=== PATIENT | male | born 2000 | race Caucasian/White ===

== ENCOUNTER 2021-08-29 18:01 | Emergency (ER) | payer SELFPAY ==
[2021-08-29 18:03] VITALS: BP 150/70; PULSE 118; RESP 20; TEMP 36.4; O2SAT 99; BMI 22.9
[2021-08-29 18:12] VITALS: BP 120/73; PULSE 79; RESP 18; TEMP 36.9; O2SAT 97
--- NOTE | 2021-08-29 18:34 | ED_ITS ---
HPI - Neuro Symptoms/Deficit General: Chief Complaint: Neuro Symptoms/Deficit Stated Complaint: bilateral hand drawing up Time Seen by Provider: 08/29/21 18:25 Source: patient and family (Spouse and mother) Mode of arrival: ambulatory Limitations: no limitations History of Present Illness: This patient presents to the emergency department here this evening because of concerns about feeling shaky and numb and like he could not move his hands earlier today. This occurred while he was with his and they were eating dinner. She states that he seemed to be rather shaky and stated that he had never felt like this before. He acknowledges that he felt like his heart was racing and he could not control his heart rate. He states he had numbness to his cheeks. He states he did not have a headache and had not been exposed to any unusual substances or foods today. Noted that he had normal speech and there was no focal weakness. He states he had a history of palpitations in the past but this felt much worse. He does not smoke tobacco but he does vape. He does not use street drugs nor does he drink alcohol. He takes no prescribed medications and has not taken any iabn-cfd-suvozno medica tions. He uses very little if any caffeinated beverages. He denied fevers or chills nausea vomiting diarrhea. He states he is feeling better at this time. No history of emotional upset etc. prior to the onset of symptoms. There was a question of stopping drinking 3 days ago but he states he does not drink that heavily and some tightness some days he does not drink. Timing confirmed by: spouse Associated symptoms: Deny chest pain, headache(s), nausea, syncope or vomiting Treatments Prior to Arrival: none Review of Systems Const: Denies: fever(s), chills, body aches or change in appetite Eyes: Denies: change in vision or blurry vision ENMT: Denies: throat pain, odynophagia, change in hearing, tinnitus, disequilibrium or nasal congestion Card: Reports: palpitations and lightheadedness; Denies: chest pain, irregular heart rhythm, syncope or pre-syncope Resp: Denies: dyspnea, productive cough or non-productive cough GI: Denies: abdominal pain, nausea or vomiting : Denies: flank pain, difficulty urinating, dysuria or urinary frequency Musc: Denies: neck pain, back pain, extremity pain or extremity swelling Skin/Breast: Denies: rash or pruritus Neuro: Reports: numbness in extremities; Denies: headache(s), weakness in extremities, sensory changes, confusion, Slurred speech present or seizure-like activity Endo: Denies: polyuria or polydipsia Nigel/Lymph: Denies: easy bruising NIH stroke score NIHSS: Level Of Consciousness - 1a: 0 Level Of Consciousness Questions - 1b: Both Correct Level Of Consciousness Commands - 1c: Both Correct Best Gaze - 2: Normal Visual Larios - 3: No Visual Loss Facial Palsy - 4: Normal Motor Arm Right - 5: No Drift Motor Arm Left - 5: No Drift Motor Leg Right - 6: No Drift Motor Leg Left - 6: No Drift Limb Ataxia - 7: Absent Sensory - 8: Normal Best Language - 9: No Aphasia Dysarthia - 10: Normal Extinction And Inattention - 11: 0 Score: Total Score: 0 Physical Exam Narrative: EXAM NARRATIVE: Patient makes good eye contact. Has normal tonality to his speech. Speech is not pressured and is goal-directed. Const: COMMON NORMALS: no acute distress, average body habitus and patient oriented x3 GENERAL APPEARANCE: cooperative HENMT: COMMON NORMALS: Normal nasal mucous membranes and turbinates present, moist oral mucous membranes and oropharynx normal NOSE: Normal nasal mucous membranes and turbinates present Neuro: COMMON NORMALS: patient oriented x3 Course Reevaluation(s): Reevaluation #1: Patient remained stable. He has received his potassium replacement. No a rrhythmias noted during monitoring. No other worrisome findings other than hypokalemia which was mild as well as his urine drug screen which showed THC as well as cocaine. This was reviewed and discussed with the patient. Denied any overt knowledge of using cocaine but does admit to the marijuana. Certainly no evidence at this time to suggest a central nervous system issue at play. His findings are consistent with possible effects of cocaine as well as perhaps concomitant hyperventilation. Stable for discharge. Time: 21:11 Vital Signs: Vital signs: Vital Signs Temperature 98.4 F 08/29/21 18:12 Pulse Rate 79 08/29/21 18:12 Respiratory Rate 18 08/29/21 18:12 Blood Pressure 120/73 08/29/21 18:12 Pulse Oximetry 97 08/29/21 18:12 MDM - Neuro Symptoms/Deficit Medical Decision Making Patient with a nonfocal clinical examination with a history suggestive of possible hyperventilation or other stimulant effect. He has remained stable throughout his emergency department evaluation with no worrisome or concerning findings. He did have incidental finding of hypokalemia as well as positive cocaine and THC on his urine drug screen. Again no findings at all to suggest an ongoing emergency medical condition. Discussed findings with the patient. He is stable for discharge. Medical Records I reviewed the patient's medical records. Lab Data I reviewed the patient's lab results. : 08/29/21 18:37 08/29/21 18:[address] 08/29/21 18:41 IMPRESSION: 1. No CT evidence of acute intracranial pathology. 2. Additional findings, as above. Laboratory Results WBC 8.5 10^3/uL (4.0-10.0) 08/29/21 18:37 RBC 5.11 10^6/uL (4.1-5.3) 08/29/21 18:37 Hgb 15.8 g/dL (11.7-16.6) 08/29/21 18:37 Hct 44.5 % (42.0-52.0) 08/29/21 18:37 MCV 87.1 fl (80-94) 08/29/21 18:37 MCH 30.9 pg (28.0-34.0) 08/29/21 18:37 MCHC 35.5 g/dL (30.0-36.0) 08/29/21 18:37 RDW 11.9 % (12.1-15.1) L 08/29/21 18:37 Plt Count 257 10^3/cmm (130-400) 08/29/21 18:37 MPV 10.7 fL (7.4-10.4) H 08/29/21 18:37 Neut % (Auto) 70.2 % 08/29/21 18:37 Lymph % (Auto) 19.9 % 08/29/21 18:37 [place] % (Auto) 8.1 % 08/29/21 18:37 Eos % (Auto) 0.9 % 08/29/21 18:37 Baso % (Auto) 0.7 % 08/29/21 18:37 Neut # (Auto) 5.97 10^3/uL (1.8-7.7) 08/29/21 18:37 Lymph # (Auto) 1.7 10^3/uL (0.8-4.8) 08/29/21 18:37 [place] # (Auto) 0.7 10^3/uL (0.2-0.9) 08/29/21 18:37 Eos # (Auto) 0.1 10^3/uL (0.0-0.8) 08/29/21 18:37 Baso # (Auto) 0.1 10^3/uL (0.0-0.1) 08/29/21 18:37 Nucleated RBC % (auto) 0 % 08/29/21 18:37 Nucleated RBCs # 0.0 /100WBC 08/29/21 18:37 Sodium 137 mmol/L (136-145) 08/29/21 18:37 Potassium 3.2 mmol/L (3.5-5.1) L 08/29/21 18:37 Chloride 101 mmol/L (98-107) 08/29/21 18:37 Carbon Dioxide 21 mmol/L (22-29) L 08/29/21 18:37 Anion Gap 18.2 (5-19) 08/29/21 18:37 BUN 11 mg/dL (6-20) 08/29/21 18:37 Creatinine 0.7 mg/dL (0.7-1.2) 08/29/21 18:37 GFR Calculation 141.0 mL/min (90-130) H 08/29/21 18:37 Glucose 150 mg/dL (65-115) H 08/29/21 18:37 Calculated Osmolality 286 mOsm/kg (285-295) 08/29/21 18:37 Calcium 10.0 mg/dL (8.5-10.5) 08/29/21 18:37 Magnesium 1.7 mg/dL (1.7-2.3) 08/29/21 18:37 Total Bilirubin 1.0 mg/dL (0.15-1.2) 08/29/21 18:37 AST 22 U/L (0-40) 08/29/21 18:37 ALT 21 U/L (0-41) 08/29/21 18:37 Alkaline Phosphatase 84 IU/L (40-130) 08/29/21 18:37 Total Protein 7.5 g/dL (6.6-8.7) 08/29/21 18:37 Albumin 5.1 g/dL (3.5-5.2) 08/29/21 18:37 Globulin 2.4 g/dL (1.3-4.6) 08/29/21 18:37 Urine Opiates Screen Negative ng/mL (Negative) 08/29/21 20:06 Ur Barbiturates Screen Negative ng/mL (Negative) 08/29/21 20:06 Ur Phencyclidine Scrn Negative ng/mL (Negative) 08/29/21 20:06 Ur Amphetamines Screen Negative ng/mL (Negative) 08/29/21 20:06 U Benzodiazepines Scrn Negative ng/mL (Negative) 08/29/21 20:06 Urine Cocaine Screen Positive ng/mL (Negative) H 08/29/21 20:06 U Marijuana (THC) Screen Positive ng/mL (Negative) H 08/29/21 20:06 Ethyl Alcohol < 10 mg/dL (0-10) 08/29/21 18:37 Discharge Plan Discharge Patient Disposition: Home Clinical Impression: Hypokalemia, Cocaine abuse with intoxication with perceptual disturbance Condition: Stable Discharge Orders: Discharge ED (Routine); Ordered 08/29/21 Ordered By: Matt Pisano Discharge Diet: Usual diet Discharge Activity: Resume usual activity Patient Instructions: Opioid Safety Activity Restrictions/Additional Instructions: Avoid street drugs. Avoid any other stimulants such as excess caffeine, energy drinks etc. Eat a regular diet to include fruits and vegetables to maintain a normal potassium level. Follow-up with your primary care physician or return to the emergency department anytime if you have any persistent worsening or new symptoms or other concerns. Coding Level of Care Code ED Crown Assembly Machine Set Up Mechanic for Unique Fwd Exam Expanded Problem Focused
--- NOTE | 2021-08-29 18:41 | ECG_ITS ---
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 Measurements Intervals [place] Rate: 116 P: 76 [place]: 153 QRS: 102 QRSD: 96 T: 74 QT: 385 QTc: 536 Interpretive Statements SINUS TACHYCARDIA POSSIBLE RIGHT ATRIAL ENLARGEMENT [0.25mV P-WAVE] LEFT ATRIAL ENLARGEMENT [-0.15mV P-WAVE IN V1/V2] RIGHT AXIS DEVIATION [QRS AXIS > 100] INCOMPLETE RIGHT BUNDLE BRANCH BLOCK [90+ ms QRS DURATION, TERMINAL R IN V1/V2, 40+ ms S IN I/aVL/V4/V5/V6] Compared to ECG 03/26/2019 13:11:13 Right-axis deviation now present Sinus rhythm no longer present T-wave abnormality no longer present Electronically Signed On 08-30-2021 20:27:48 CDT by Jim Paez M.D. [id number]
--- NOTE | 2021-08-29 18:41 | CTR_ITS ---
PROCEDURE INFORMATION: Exam: CT Head Without Contrast Exam date and time: 08/29/2021 7:26 PM Age: 20 years old Clinical indication: Numbness / parasthesia; Bilateral; Patient HX: C/O b hand numbness/weakness; Additional info: Numbness and weakness TECHNIQUE: Imaging protocol: Computed tomography of the head without contrast. Axial, coronal and sagittal reformatted images were created and reviewed. Radiation optimization: All CT scans at this facility use at least one of these dose optimization techniques: automated exposure control; mA and/or kV adjustment per patient size (includes targeted exams where dose is matched to clinical indication); or iterative reconstruction. COMPARISON: No relevant prior studies available. RADIATION DOSE METRICS: Total DLP (mGy-cm): 935.48 FINDINGS: Brain: No CT evidence of acute intracranial hemorrhage or acute territorial infarction. No significant mass effect or midline shift. Basal cisterns patent. Cerebral ventricles: Normal in size and configuration. Paranasal sinuses: Mild ethmoid mucosal thickening. Mastoid air cells: Grossly unremarkable. Bones/joints: No acute osseous abnormality. Soft tissues: Grossly unremarkable. CT/CT head wo con* [id number] IMPRESSION: 1. No CT evidence of acute intracranial pathology. 2. Additional findings, as above.
[2021-08-29 18:52] LABS: Basophils # 0.1 10^3/uL (0.0-0.1); Basophils % 0.7 %; Eosinophils # 0.1 10^3/uL (0.0-0.8); Eosinophils % 0.9 %; Hematocrit 44.5 % (42.0-52.0); Hemoglobin 15.8 g/dL (11.7-16.6); Lymphocytes # 1.7 10^3/uL (0.8-4.8); Lymphocytes % 19.9 %; Mean Corpuscular HGB Conc 35.5 g/dL (30.0-36.0); Mean Corpuscular Hemoglobin 30.9 pg (28.0-34.0); Mean Corpuscular Volume 87.1 fl (80-94); Mean Platelet Volume 10.7 fL (7.4-10.4); Monocytes # 0.7 10^3/uL (0.2-0.9); Monocytes % 8.1 %; Neutrophils # 5.97 10^3/uL (1.8-7.7); Neutrophils % 70.2 %; Nucleated Red Blood Cells % 0 %; Platelet Count 257 10^3/cmm (130-400); Red Blood Count 5.11 10^6/uL (4.1-5.3); Red Cell Distribution Width 11.9 % (12.1-15.1); White Blood Count 8.5 10^3/uL (4.0-10.0)
[2021-08-29 19:11] LABS: Alanine Aminotransferase 21 U/L (0-41); Albumin Level 5.1 g/dL (3.5-5.2); Alkaline Phosphatase 84 IU/L (40-130); Anion Gap 18.2 (5-19); Aspartate Amino Transferase 22 U/L (0-40); Blood Urea Nitrogen 11 mg/dL (6-20); Carbon Dioxide 21 mmol/L (22-29); Chloride 101 mmol/L (98-107); Globulin 2.4 g/dL (1.3-4.6); Glucose 150 mg/dL (65-115); Magnesium 1.7 mg/dL (1.7-2.3); Osmolality Calculated 286 mOsm/kg (285-295); Potassium 3.2 mmol/L (3.5-5.1); Sodium 137 mmol/L (136-145); Total Protein 7.5 g/dL (6.6-8.7)
[2021-08-29 19:12] LABS: Alcohol Level < 10 mg/dL (0-10)
[2021-08-29] MEDS: potassium chloride ER 20 mEq Tablet 40 MEQ PO (20:18)
[2021-08-29 20:29] LABS: Amphetamines Screen Urine Negative (Negative); Barbiturates Screen Urine Negative (Negative); Benzodiazepines Screen Urine Negative (Negative); Cocaine Screen Urine Positive (Negative); Opiate Screen Urine Negative (Negative); PCP Screen Urine Negative (Negative); THC Screen Urine Positive (Negative)
[2021-08-29 21:21] VITALS: BP 109/71; PULSE 74; RESP 16; O2SAT 98
== END 2021-08-29 21:22 | disposition home or self-care (01) ==
PROVIDERS: Emergency Provider Emergency Medicine
DX: F14.122 Cocaine abuse with intoxication with perceptual disturbance (principal); E87.6 Hypokalemia
CPT/HCPCS: 70450; 80053; 80306; 80307; 83735; 85025; 93005; 99283

== ENCOUNTER → 2022-02-11 14:02 | Outpatient (BNVA) | payer SELFPAY | PROVIDERS: Visit Provider Nurse Practitioner Family | DX: Z20.822 Contact with and (suspected) exposure to COVID-19 (principal); U07.1 COVID-19; R00.0 Tachycardia, unspecified | CPT/HCPCS: 87426 ==

== ENCOUNTER 2023-07-15 20:03 | Emergency (ER) | payer SELFPAY ==
[2023-07-15 20:12] VITALS: BP 124/75; PULSE 106; RESP 18; TEMP 37; O2SAT 96; BMI 26.2
[2023-07-15 21:30] VITALS: PULSE 126; RESP 14; O2SAT 96
--- NOTE | 2023-07-15 21:33 | ECG_ITS ---
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 Measurements Intervals [place] Rate: 101 P: 61 [place]: 128 QRS: 92 QRSD: 96 T: 29 QT: 308 QTc: 400 Interpretive Statements SINUS TACHYCARDIA POSSIBLE LEFT ATRIAL ENLARGEMENT [-0.1mV P-WAVE IN V1/V2] BORDERLINE RIGHT AXIS DEVIATION [QRS AXIS > 90] INCOMPLETE RIGHT BUNDLE BRANCH BLOCK [90+ ms QRS DURATION, TERMINAL R IN V1/V2, 40+ ms S IN I/aVL/V4/V5/V6] ST DEVIATION AND MODERATE T-WAVE ABNORMALITY, CONSIDER LATERAL ISCHEMIA [-0.1+ mV T-WAVE IN I/aVL/V5/V6] Compared to ECG 08/29/2021 18:07:55 T-wave abnormality now present Possible ischemia now present Electronically Signed On 07-15-2023 23:09:34 ASSISTANT PORTFOLIO MANAGER by German Méndez M.D. [email or web address]/[id number] muse
--- NOTE | 2023-07-15 21:33 | XRR_ITS ---
PROCEDURE INFORMATION: Exam: XR Chest Exam date and time: 07/15/2023 9:53 PM Age: 22 years old Clinical indication: Angina pectoris; Patient HX: Chest pain; Bilat arm numbness TECHNIQUE: Imaging protocol: Radiologic exam of the chest. Views: 1 view. COMPARISON: CT chest abdpel w/*[id number] 04/24/2017 10:55 PM FINDINGS: Lungs: Unremarkable. No consolidation. Pleural spaces: Unremarkable. No pleural effusion. No pneumothorax. Heart/Mediastinum: Unremarkable. No cardiomegaly. Bones/joints: Unremarkable. XR/XR chest 1V portable [id number] IMPRESSION: No acute plain radiographic cardiopulmonary abnormality.
[2023-07-15] MEDS: dilTIAZem 5 mg/mL SDV 5 mL IVP (21:44)
[2023-07-15] MEDS: dilTIAZem 5 mg/mL SDV 5 mL 10 MG IVP (21:44)
[2023-07-15 21:45] VITALS: PULSE 126; RESP 16; O2SAT 98
[2023-07-15 21:55] LABS: Basophils # 0.1 10^3/uL (0.0-0.1); Basophils % 0.8 %; Eosinophils % 0.2 %; Hematocrit 43.7 % (37-53); Lymphocytes # 2.2 10^3/uL (0.8-4.8); Lymphocytes % 25.6 %; Mean Corpuscular HGB Conc 36.4 g/dL (30-55); Mean Corpuscular Hemoglobin 30.6 pg (27-33); Monocytes # 0.7 10^3/uL (0.2-0.9); Monocytes % 8.1 %; Neutrophils # 5.58 10^3/uL (1.8-7.7); Neutrophils % 65.1 %; Nucleated Red Blood Cells % 0 %; Platelet Count 267 10^3/cmm (157-399); Red Cell Distribution Width 11.2 % (12.1-15.1); White Blood Count 8.57 10^3/uL (3.29-11.43)
[2023-07-15 22:00] VITALS: BP 139/79; PULSE 141; RESP 17; O2SAT 95
[2023-07-15] MEDS: LORazepam 2 mg/mL INJ 10 mL MDV IVP (22:05)
[2023-07-15 22:09] LABS: INR 1.05 (0.8-1.2)
[2023-07-15 22:10] LABS: Partial Thromboplastin Time 29.4 SECONDS (23.9-36.7)
[2023-07-15 22:12] LABS: D Dimer <= 0.27 ug/mLFEU (0-0.59)
[2023-07-15 22:15] LABS: Troponin(5th) Baseline < 6 ng/L (0-15)
[2023-07-15 22:25] LABS: Alanine Aminotransferase 14 U/L (0-41); Alkaline Phosphatase 79 U/L (40-130); Anion Gap 19.5 (5-19); Aspartate Amino Transferase 19 U/L (0-40); Blood Urea Nitrogen 13 mg/dL (6-20); Calcium 9.9 mg/dL (8.5-10.5); Carbon Dioxide 21 mmol/L (22-29); Chloride 104 mmol/L (98-107); Globulin 2.2 g/dL (1.3-4.6); Glomerular Filtration Rate 138.6 mL/min (90-130); Glucose 108 mg/dL (65-115); NT Pro B Type Natriuretic Pept < 36 pg/mL (0-125); Osmolality Calculated 293 mOsm/kg (285-295); Potassium 3.5 mmol/L (3.5-5.1); Sodium 141 mmol/L (136-145); Thyroid Stimulating Hormone 1.25 uIU/mL (0.27-4.20); Total Bilirubin 0.6 mg/dL (0.15-1.2); Total Protein 7.2 g/dL (6.6-8.7)
[2023-07-15 22:26] LABS: Alcohol Level < 10 mg/dL (0-10)
[2023-07-15 22:34] VITALS: BP 122/72; PULSE 79; PULSE 83; RESP 14; RESP 23; O2SAT 94; O2SAT 96
[2023-07-15] MEDS: potassium chloride ER 20 mEq Tablet 40 MEQ PO (23:12)
--- NOTE | 2023-07-15 23:33 | ECG_ITS ---
[facility] Test Date: 2023-07-15 Pat Name: Reji Mancera Department: Room: Gender: Male Pediatric Critical Care Nurse: : 2000 Requested By: Milton Dowling Order Number: [id number] Jason MD: German Méndez M.D. Measurements Intervals [place] Rate: 128 P: 59 [place]: 190 QRS: 88 QRSD: 105 T: 62 QT: 382 QTc: 559 Interpretive Statements SINUS TACHYCARDIA INCOMPLETE RIGHT BUNDLE BRANCH BLOCK [90+ ms QRS DURATION, TERMINAL R IN V1/V2, 40+ ms S IN I/aVL/V4/V5/V6] ST DEVIATION AND MODERATE T-WAVE ABNORMALITY, CONSIDER ANTERIOR ISCHEMIA [-0.1+ mV T-WAVE IN V3/V4] Compared to ECG 07/15/2023 20:16:07 No significant changes Electronically Signed On 07-15-2023 23:21:49 WIND FARM SUPPORT SPECIALIST by German Méndez M.D. [email or web address]/store/NU/[id number] f
--- NOTE | 2023-07-15 23:42 | PC.NURSE ---
Per instruction of Dr Barber, patient was ambulated down the hallway to determine if his heart rate became elevated. Patient ambulated without incident, and was assisted back into bed. Vitals remained stable; pt had no complaints of chest pain, shortness of breath, dizziness, weakness, or any other concerning symptom. Dr Barber notified of the results of ambulation, no further orders received at this time.
[2023-07-15 23:43] VITALS: BP 109/69; PULSE 80; RESP 15; O2SAT 97
--- NOTE | 2023-07-15 23:52 | ED_ITS ---
HPI - Chest Pain 2 General: Chief Complaint: Chest Pain Stated Complaint: Heart Rate High Time Seen by Provider: 07/15/23 20:46 History of Present Illness: 22-year-old male with a history of tachy cardia. Tachycardia is of undiagnosed origin. He reports the last time his potassium was low. He presents with tachycardia and palpitations. He is having chest pain intermittently. He gets left arm pain sometimes when his heart rate is increased. This has been going on today on and off. He has no primary physician. He never followed up after his last episode which was a year ago he says. No other recent illness. Associated symptoms: Reports dyspnea, nausea and palpitations; Deny abdominal pain, fever(s) or vomiting Review of Systems 2 Const: Denies: fever(s) or chills Eyes: Denies: change in vision ENMT: Denies: throat pain Card: Reports: chest pain and palpitations Resp: Reports: dyspnea; Denies: productive cough or non-productive cough GI: Reports: nausea; Denies: abdominal pain or vomiting Musc: Denies: neck pain Skin/Breast: Denies: rash Neuro: Denies: headache(s) Psych: Reports: anxiety PFSH ED 2 PFSH: Medical History Tachycardia Social History Smoking and tobacco/nicotine status: never used tobacco/nicotine Physical Exam 2 Const: COMMON NORMALS: no acute distress GENERAL APPEARANCE: cooperative; not ill appearing and not frail appearing HENMT: COMMON NORMALS: normocephalic, atraumatic and Normal external nose present HEAD & SCALP: normocephalic and atraumatic FACE & SINUS: normal facial exam and face symmetric NOSE: Normal external nose present Eye: COMMON NORMALS: Equal, round and reactive pupils present and EOMs intact bilaterally PUPIL: Yes Equal, round and reactive pupils present Neck/C-Spine: GENERAL: Yes trachea midline Chest: CHEST: Yes Symmetrical chest wall rise Resp: COMMON NORMALS: normal respiratory effort, No retractions, No use of accessory muscles and clear to auscultation bilaterally AUSCULTATION: clear to auscultation bilaterally Cardio: COMMON NORMALS: regular rhythm RATE: tachycardic RHYTHM: regular rhythm GI: COMMON NORMALS: Normal to inspection, nondistended, normoactive bowel sounds present Extremity: COMMON NORMALS: no pedal edema Neuro: MADDIE COMA SCALE: document GCS findings Hubert coma scale eye opening: Spontaneous Hubert coma scale verbal response: Orientated Hubert coma scale motor response: Obey commands Maddie coma scale total score: 15 S ENSORY EXAM: Yes extremities (intact) Psych: COMMON NORMALS: speech normal SPEECH: Yes normal speech Skin: COMMON NORMALS: no rashes or lesions noted GENERAL SKIN EXAM: no rashes or lesions noted Course 2 Vital Signs: Vital signs: Vital Signs Temperature 98.6 F 07/15/23 20:12 Pulse Rate 84 07/16/23 00:20 Respiratory Rate 15 07/15/23 23:43 Blood Pressure 102/71 07/16/23 00:20 Pulse Oximetry 97 07/16/23 00:20 Oxygen Delivery Me thod Room Air 07/15/23 22:00 MDM - Chest Pain Medical Decision Making Heart rate as high as 150. Sinus tachycardia. CBC is normal. BMP is normal. Chest x-ray is negative. Troponin is less than 6. BNP is less than 36. D- dimer is nondetectable. TSH is 1.25. Patient has been on able to give a urine sample as yet. He was given diltiazem for the heart rate of 1 45-1 50. This seemed to help. He was also given 1 lorazepam as he was quite anxious. This resolved his tachycardia. He hs walked in the ER without tachycardia or symptoms. He will be discharged. He will require outpatient follow-up with cardiology given his tachycardia. Case management has been notified. In the meantime, he'll be treated with metoprolol to hopefully mitigate the HR problem. Lab Data 07/15/23 21:48 07/15/23 21:48 Radiology Impressions Chest X-Ray 07/15/23 21:33 IMPRESSION: No acute plain radiographic cardiopulmonary abnormality. Laboratory Results WBC 8.57 10^3/uL (3.29-11.43) 07/15/23 21:48 RBC 5.20 10^6/uL (3.85-5.65) 07/15/23 21:48 Hgb 15.90 g/dL (11.27-16.99) 07/15/23 21:48 Hct 43.7 % (37-53) 07/15/23 21:48 MCV 84.0 fl (82-101) 07/15/23 21:48 MCH 30.6 pg (27-33) 07/15/23 21:48 MCHC 36.4 g/dL (30-55) 07/15/23 21:48 RDW 11.2 % (12.1-15.1) L 07/15/23 21:48 Plt Count 267 10^3/cmm (157-399) 07/15/23 21:48 MPV 11.0 fL (7.4-10.4) H 07/15/23 21:48 Neut % (Auto) 65.1 % 07/15/23 21:48 Lymph % (Auto) 25.6 % 07/15/23 21:48 [place] % (Auto) 8.1 % 07/15/23 21:48 Eos % (Auto) 0.2 % 07/15/23 21:48 Baso % (Auto) 0.8 % 07/15/23 21:48 Neut # (Auto) 5.58 10^3/uL (1.8-7.7) 07/15/23 21:48 Lymph # (Auto) 2.2 10^3/uL (0.8-4.8) 07/15/23 21:48 [place] # (Auto) 0.7 10^3/uL (0.2-0.9) 07/15/23 21:48 Eos # (Auto) 0.0 10^3/uL (0.0-0.8) 07/15/23 21:48 Baso # (Auto) 0.1 10^3/uL (0.0-0.1) 07/15/23 21:48 Nucleated RBC % (auto) 0 % 07/15/23 21:48 Nucleated RBCs # 0.0 /100WBC 07/15/23 21:48 PT 14.10 SECONDS (12.1-14.9) 07/15/23 21:48 INR 1.05 (0.8-1.2) 07/15/23 21:48 APTT 29.4 SECONDS (23.9-36.7) 07/15/23 21:48 D-Dimer <= 0.27 ug/mLFEU (0-0.59) 07/15/23 21:48 Sodium 141 mmol/L (136-145) 07/15/23 21:48 Potassium 3.5 mmol/L (3.5-5.1) 07/15/23 21:48 Chloride 104 mmol/L (98-107) 07/15/23 21:48 Carbon Dioxide 21 mmol/L (22-29) L 07/15/23 21:48 Anion Gap 19.5 (5-19) H 07/15/23 21:48 BUN 13 mg/dL (6-20) 07/15/23 21:48 Creatinine 0.7 mg/dL (0.7-1.2) 07/15/23 21:48 GFR Calculation 138.6 mL/min (90-130) H 07/15/23 21:48 Glucose 108 mg/dL (65-115) 07/15/23 21:48 Calculated Osmolality 293 mOsm/kg (285-295) 07/15/23 21:48 Calcium 9.9 mg/dL (8.5-10.5) 07/15/23 21:48 Total Bilirubin 0.6 mg/dL (0.15-1.2) 07/15/23 21:48 AST 19 U/L (0-40) 07/15/23 21:48 ALT 14 U/L (0-41) 07/15/23 21:48 Alkaline Phosphatase 79 U/L (40-130) 07/15/23 21:48 Troponin T Baseline < 6 ng/L (0-15) 07/15/23 21:48 Troponin T 120 Minute 6.00 ng/L (0-15) 07/15/23 23:48 Delta Troponin T 0.27062 ABS# (0-10) 07/15/23 23:48 NT-Pro-B Natriuret Pep < 36 pg/mL (0-125) 07/15/23 21:48 Total Protein 7.2 g/dL (6.6-8.7) 07/15/23 21:48 Albumin 5.0 g/dL (3.5-5.2) 07/15/23 21:48 Globulin 2.2 g/dL (1.3-4.6) 07/15/23 21:48 TSH 1.25 uIU/mL (0.27-4.20) 07/15/23 21:48 Ethyl Alcohol < 10 mg/dL (0-10) 07/15/23 21:48 All radiology interpretation(s) finalized by discharge Discharge Plan Discharge Patient Disposition: Home Clinical Impression: Tachycardia Condition: Stable Prescriptions: New metoprolol tartrate 25 mg tablet 12.5 mg PO BID Qty: 60 0RF Discharge Orders: Discharge ED (Routine); Ordered 07/16/23 Ordered By: Milton Barber Referrals: Jim Paez MD [Physician] - Patient Instructions: Tachycardia (ED), Opioid Safety, Pain Management Activity Restrictions/Additional Instructions: You presented this evening with a fast heart rate. It is resolved at this point. Medication you are prescribed should prevent tachycardia to some degree. Case management has been asked to make you an appointment with the heart clinic. You should a call from them next week regarding evaluation. You are encouraged to follow-up. Return for repeated episodes of fast heart rate or palpitations, chest discomfort, other concerning symptoms despite treatment in the meantime. Coding Level of Care Code ED Wire Winding Machine Tender for Unique Lopez
[2023-07-16 00:16] LABS: Troponin 5 2HR Delta 0.00001 ABS# (0-10)
[2023-07-16 00:20] VITALS: BP 102/71; PULSE 84; O2SAT 97
[2023-07-16] MEDS: metoprolol tartrate 25 mg Tablet PO (00:43)
--- NOTE | 2023-07-17 08:20 | DCPLANNER ---
Message was sent to cardiology on 07/17/23 at 0821. Clinic to contact patient.
== END 2023-07-16 00:23 | disposition home or self-care (01) ==
PROVIDERS: Emergency Provider Emergency Medicine
DX: R00.0 Tachycardia, unspecified (principal)
CPT/HCPCS: 36415; 71045; 80053; 80307; 83880; 84443; 84484; 85025; 85378; 85610; 85730; 93005; 96374; 96375; 99285; J2060; J3490

== ENCOUNTER 2023-07-17 15:28 | Emergency (ER) | payer SELFPAY ==
--- NOTE | 2023-07-17 15:38 | ECG_ITS ---
[facility] Test Date: 2023-07-17 Pat Name: Reji Mancera Department: Room: Gender: Male [place] Attendant: : 2000 Requested By: Heaven Pemberton Order Number: [id number] Jason MD: German Méndez M.D. Measurements Intervals [place] Rate: 94 P: 45 [place]: 124 QRS: 88 QRSD: 103 T: 26 QT: 368 QTc: 460 Interpretive Statements SINUS RHYTHM INCOMPLETE RIGHT BUNDLE BRANCH BLOCK [90+ ms QRS DURATION, TERMINAL R IN V1/V2, 40+ ms S IN I/aVL/V4/V5/V6] NONSPECIFIC ST & T-WAVE ABNORMALITY Compared to ECG 07/15/2023 21:34:10 Sinus tachycardia no longer present Possible ischemia no longer present T-wave abnormality still present Electronically Signed On 07-17-2023 23:09:14 URBAN PLANNER by German Méndez M.D. [email or web address].[employer]/store/[id number]
[2023-07-17 15:43] VITALS: BP 120/81; PULSE 85; RESP 16; TEMP 36.8; O2SAT 100; BMI 26.2
[2023-07-17 16:54] LABS: Basophils # 0.1 10^3/uL (0.0-0.1); Basophils % 0.7 %; Eosinophils # 0.1 10^3/uL (0.0-0.8); Eosinophils % 0.7 %; Lymphocytes # 1.6 10^3/uL (0.8-4.8); Lymphocytes % 23.2 %; Mean Corpuscular HGB Conc 34.7 g/dL (30-55); Mean Corpuscular Hemoglobin 30.6 pg (27-33); Mean Corpuscular Volume 88.3 fl (82-101); Mean Platelet Volume 11.4 fL (7.4-10.4); Monocytes # 0.6 10^3/uL (0.2-0.9); Monocytes % 8.2 %; Neutrophils # 4.56 10^3/uL (1.8-7.7); Neutrophils % 66.9 %; Nucleated Red Blood Cells % 0 %; Platelet Count 240 10^3/cmm (157-399); Red Blood Count 5.32 10^6/uL (3.85-5.65); Red Cell Distribution Width 11.4 % (12.1-15.1); White Blood Count 6.82 10^3/uL (3.29-11.43)
[2023-07-17 17:21] LABS: Alanine Aminotransferase 15 U/L (0-41); Albumin Level 4.9 g/dL (3.5-5.2); Alkaline Phosphatase 79 U/L (40-130); Anion Gap 16.1 (5-19); Aspartate Amino Transferase 17 U/L (0-40); Blood Urea Nitrogen 15 mg/dL (6-20); Calcium 10.3 mg/dL (8.5-10.5); Carbon Dioxide 26 mmol/L (22-29); Chloride 101 mmol/L (98-107); Globulin 2.7 g/dL (1.3-4.6); Glomerular Filtration Rate 118.8 mL/min (90-130); Glucose 110 mg/dL (65-115); NT Pro B Type Natriuretic Pept < 36 pg/mL (0-125); Osmolality Calculated 289 mOsm/kg (285-295); Potassium 4.1 mmol/L (3.5-5.1); Sodium 139 mmol/L (136-145); Total Bilirubin 0.6 mg/dL (0.15-1.2); Total Protein 7.6 g/dL (6.6-8.7)
[2023-07-17 17:42] LABS: Troponin(5th) Baseline < 6 ng/L (0-15)
--- NOTE | 2023-07-17 18:58 | ED_ITS ---
HPI - Arrhythmia/Palpitations 2 General: Chief Complaint: Arrhythmia/Palpitations Stated Complaint: high hr, chestpains,sob Time Seen by Provider: 07/17/23 18:46 Source: patient Mode of arrival: ambulatory Limitations: no limitations History of Present Illness: 22-year-old male who has been having pal pitations he states he had another event where he felt like his heart was starting to race he started having numbness down both his arms and legs states her rate got up to the 170s states that since improved denies any shortness of breath currently his heart rates now in the 80s he is seen here yesterday started on metoprolol he does not have a PCP. No known history of arrhythmia Associated symptoms: Deny nausea or vomiting Review of Systems 2 Const: Denies: fever(s), chills, body aches or change in appetite Eyes: Denies: blurry vision or eye discomfort Card: Reports: chest pain and palpitations Resp: Denies: dyspnea GI: Denies: abdominal pain, nausea, vomiting or diarrhea Musc: Denies: neck pain or back pain Skin/Breast: Denies: rash Neuro: Denies: headache(s) PFSH ED 2 PFSH: Medical History Tachycardia Social History Smoking and tobacco/nicotine status: never used tobacco/nicotine Physical Exam 2 Const: COMMON NORMALS: no acute distress, patient oriented x3 and healthy appearing HENMT: COMMON NORMALS: normocephalic and atraumatic HEAD & SCALP: n ormocephalic and atraumatic Neck/C-Spine: COMMON NORMALS: full ROM and supple Chest: COMMONS NORMALS: normal inspection of the chest Resp: COMMON NORMALS: normal respiratory effort, No retractions, No use of accessory muscles and clear to auscultation bilaterally AUSCULTATION: clear to auscultation bilaterally Cardio: COMMON NORMALS: regular rate, regular rhythm and No murmurs present (Cardio) RATE: regular rate RHYTHM: regular rhythm Extremity: COMMON NORMALS: normal to inspection and full ROM Neuro: COMMON NORMALS: patient oriented x3, moves all extremities and no focal motor deficits Psych: COMMON NORMALS: mental status grossly normal, Normal thought process present and cooperative THOUGHT PROCESS: Normal thought process present Skin: COMMON NORMALS: no rashes or lesions noted and no wounds GENERAL SKIN EXAM: no rashes or lesions noted Course 2 Vital Signs: Vital signs: Vital Signs Temperature 98.2 F 07/17/23 15:43 Pulse Rate 85 07/17/23 15:43 Respiratory Rate 16 07/17/23 15:43 Blood Pressure 120/81 07/17/23 15:43 Pulse Oximetry 100 07/17/23 15:43 Oxygen Delivery Me thod Room Air 07/17/23 15:43 MDM - Arrhythmia/Palpitations Medical Decision Making Patient presents here with palpitations patient's blood work and EKG here are normal his heart rate here is normal we will start on Vistaril for possible anxiety he is continue his metoprolol he is to follow-up with a PCP or cardiology he likely needs a heart monitor in the future if this continues. Medical Records I reviewed the patient's medical records. Lab Data I reviewed the patient's lab results. 07/17/23 16:26 07/17/23 16:26 Laboratory Results WBC 6.82 10^3/uL (3.29-11.43) 07/17/23 16:26 RBC 5.32 10^6/uL (3.85-5.65) 07/17/23 16:26 Hgb 16.30 g/dL (11.27-16.99) 07/17/23 16:26 Hct 47.0 % (37-53) 07/17/23 16:26 MCV 88.3 fl (82-101) 07/17/23 16:26 MCH 30.6 pg (27-33) 07/17/23 16:26 MCHC 34.7 g/dL (30-55) 07/17/23 16:26 RDW 11.4 % (12.1-15.1) L 07/17/23 16:26 Plt Count 240 10^3/cmm (157-399) 07/17/23 16:26 MPV 11.4 fL (7.4-10.4) H 07/17/23 16:26 Neut % (Auto) 66.9 % 07/17/23 16:26 Lymph % (Auto) 23.2 % 07/17/23 16:26 [place] % (Auto) 8.2 % 07/17/23 16:26 Eos % (Auto) 0.7 % 07/17/23 16:26 Baso % (Auto) 0.7 % 07/17/23 16:26 Neut # (Auto) 4.56 10^3/uL (1.8-7.7) 07/17/23 16: Lymph # (Auto) 1.6 10^3/uL (0.8-4.8) 07/17/23 16:26 [place] # (Auto) 0.6 10^3/uL (0.2-0.9) 07/17/23 16:26 Eos # (Auto) 0.1 10^3/uL (0.0-0.8) 07/17/23 16: Baso # (Auto) 0.1 10^3/uL (0.0-0.1) 07/17/23 16: Nucleated RBC % (auto) 0 % 07/17/23 16: Nucleated RBCs # 0.0 /100WBC 07/17/23 16:26 Sodium 139 mmol/L (136-145) 07/17/23 16:26 Potassium 4.1 mmol/L (3.5-5.1) 07/17/23 16:26 Chloride 101 mmol/L (98-107) 07/17/23 16:26 Carbon Dioxide 26 mmol/L (22-29) 07/17/23 16:26 Anion Gap 16.1 (5-19) 07/17/23 16:26 BUN 15 mg/dL (6-20) 07/17/23 16:26 Creatinine 0.8 mg/dL (0.7-1.2) 07/17/23 16:26 GFR Calculation 118.8 mL/min (90-130) 07/17/23 16:26 Glucose 110 mg/dL (65-115) 07/17/23 16:26 Calculated Osmolality 289 mOsm/kg (285-295) 07/17/23 16:26 Calcium 10.3 mg/dL (8.5-10.5) 07/17/23 16:26 Total Bilirubin 0.6 mg/dL (0.15-1.2) 07/17/23 16:26 AST 17 U/L (0-40) 07/17/23 16:26 ALT 15 U/L (0-41) 07/17/23 16:26 Alkaline Phosphatase 79 U/L (40-130) 07/17/23 16:26 Troponin T Baseline < 6 ng/L (0-15) 07/17/23 16:26 NT-Pro-B Natriuret Pep < 36 pg/mL (0-125) 07/17/23 16:26 Total Protein 7.6 g/dL (6.6-8.7) 07/17/23 16:26 Albumin 4.9 g/dL (3.5-5.2) 07/17/23 16:26 Globulin 2.7 g/dL (1.3-4.6) 07/17/23 16:26 No radiology studies performed this visit Discharge Plan Discharge Patient Disposition: Home Clinical Impression: Palpitations Condition: Stable Prescriptions: New Vistaril 25 mg capsule 25 mg PO TID PRN (Reason: anxiety) Qty: 14 0RF No Action metoprolol tartrate 25 mg tablet 12.5 mg PO BID Qty: 60 0RF Discharge Orders: Discharge ED (Routine); Ordered 07/17/23 Ordered By: Heaven Pemberton Discharge Diet: Advance as tolerated Discharge Activity: Resume usual activity Patient Instructions: Heart Palpitations (ED) Coding Level of Care Code ED Labor Utilization Superintendent for Unique Lopez
[2023-07-17] MEDS: hyDROXYzine 25 mg Capsule PO (19:55)
--- NOTE | 2023-07-18 12:49 | PC.NURSE ---
Patient calls to notify that [facility] in [place] states they never received the Vistaril prescription. Patient requests that it now be sent to [facility]. Verbal order for this was called into Jonna at [facility].
--- NOTE | 2023-07-20 21:14 | DCPLANNER ---
Message sent to cardiology for a follow up -
== END 2023-07-17 18:58 | disposition home or self-care (01) ==
PROVIDERS: Emergency Provider Emergency Medicine
DX: R00.2 Palpitations (principal)
CPT/HCPCS: 36415; 80053; 83880; 84484; 85025; 93005; 99284

== ENCOUNTER 2024-04-18 12:31 | Observation (INO) | payer SELFPAY ==
[2024-04-18] VITALS (17 sets, daily range): BP systolic 102–115; BP diastolic 62–89; PULSE 2–105; RESP 12–21; TEMP 36.4–37; O2SAT 95–98; BMI 27.3; BMI 25.2
--- NOTE | 2024-04-18 12:37 | ECG_ITS ---
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 Measurements Intervals [place] Rate: 99 P: 57 [place]: 144 QRS: 79 QRSD: 97 T: 35 QT: 344 QTc: 442 Interpretive Statements SINUS RHYTHM POSSIBLE LEFT ATRIAL ENLARGEMENT [-0.1mV P-WAVE IN V1/V2] INCOMPLETE RIGHT BUNDLE BRANCH BLOCK [90+ ms QRS DURATION, TERMINAL R IN V1/V2, 40+ ms S IN I/aVL/V4/V5/V6] NONSPECIFIC T-WAVE ABNORMALITY Compared to ECG 07/17/2023 15:39:48 No significant changes Electronically Signed On 04-18-2024 21:57:03 FACILITY ENGINEER by Jim Paez M.D. [id number]
--- NOTE | 2024-04-18 13:08 | ED_ITS ---
HPI - Arrhythmia/Palpitations 2 General: Chief Complaint: Arrhythmia/Palpitations Stated Complaint: high heart rate Time Seen by Provider: 04/18/24 13:05 History of Present Illness: 23-year-old male presents to the emergen cy room complaining of rapid heart rate. He states intermittently he gets rapid heart rates that will last for a few minutes sometimes much as 20 or 30 minutes are associated with numbness and tingling in his legs bilaterally as well as a little bit of chest discomfort. He does not really notice any breathing difficulty he has had this for some time he has been seen for it before he was started on metoprolol and hydroxyzine. He has not noticed anything that seems to exacerbate or relieve it. He has not had any fever sweats or chills he does not ingest large amounts of caffeine or energy drinks he does not smoke or use alcohol. He has no known previously diagnosed arrhythmias. He is not having any chest pain at this time. Related Data Home Medications Medication Instructions Recorded Confirmed hydroxyzine pamoate 25 mg capsule 25 mg PO TID 04/18/24 04/18/24 Previous Rx's Medication Instructions Recorded aspirin 81 mg capsule 81 mg PO DAILY 30 days #30 caps 04/19/24 metoprolol succinate 25 mg 25 mg PO DAILY 30 days #30 tabs 04/19/24 tablet,extended release 24 hr Allergies Allergy/AdvReac Type Severity Reaction Status Date / Time naproxen Allergy ADR/ALGY-Pa Verified 10/11/23 11:29 lpitations Review of Systems 2 Const: Denies: fever(s) or chills Card: Denies: chest pain Resp: Denies: dyspnea GI: Denies: abdominal pain : Denies: dysuria, urinary frequency or urinary urgency Musc: Denies: neck pain or back pain Skin/Breast: Denies: rash PFSH ED 2 PFSH: Medical History Tachycardia Surgical History No pertinent past surgical history Family History Other No pertinent family history Social History Smoking and tobacco/nicotine status: current every day tobacco/nicotine user e- cigarettes E-Cigarette Details: with nicotine and smokeless tobacco Alcohol intake: never Substance/Drug Use: never Physical Exam 2 Const: GENERAL APPEARANCE: cooperative ORIENTATION/CONSCIOUSNESS: Yes awake, Yes oriented to person, Yes oriented to place and Yes oriented to time HENMT: COMMON NORMALS: normocephalic, atraumatic and hearing grossly normal bilaterally HEAD & SCALP: normocephalic and atraumatic Resp: COMMON NORMALS: normal respiratory effort, No retractions, No use of accessory muscles and clear to auscultation bilaterally AUSCULTATION: clear to auscultation bilaterally Cardio: COMMON NORMALS: regular rate, regular rhythm and No murmurs present (Cardio) RATE: regular rate RHYTHM: regular rhythm GI: COMMON NORMALS: Soft to palpation and No hepatosplenomegaly present A USCULTATION: Yes normoactive bowel sounds PALPATION: Yes Soft to palpation, No Tenderness to palpation present (GI), No Guarding due to palpation present (GI) and Yes No hepatosplenomegaly present Extremity: COMMON NORMALS: normal to inspection, capillary refill normal, no clubbing, cyanosis or edema, no calf tenderness and no pedal edema Neuro: SENSORIUM/ORIENTATION: Yes oriented to person, Yes oriented to place and Yes oriented to time Skin: COMMON NORMALS: no rashes or lesions noted GENERAL SKIN EXAM: no rashes or lesions noted Course 2 Vital Signs: Vital signs: Vital Signs Temperature 97.8 F 04/19/24 11:58 Pulse Rate 80 04/19/24 11:58 Respiratory Rate 21 H 04/19/24 11:58 Blood Pressure 124/76 04/19/24 11:58 Pulse Oximetry 96 04/19/24 11:58 Oxygen Delivery Me thod Room Air 04/19/24 11:58 MDM - Arrhythmia/Palpitations Medical Decision Making No EKG changes the patient did have a positive troponin of +10. Discussed with the hospitalist he recommends admission. Did give the patient aspirin he is not currently having any chest discomfort has not had any recorded arrhythmias. Consult cardiology Medical Records I reviewed the patient's medical records. Lab Data I reviewed the patient's lab results. 04/18/24 14:29 04/18/24 14:29 Radiology Impressions Chest X-Ray 04/18/24 15:14 IMPRESSION: No acute findings. Laboratory Results WBC 5.66 10^3/uL (3.29-11.43) 04/18/24 14: RBC 5.73 10^6/uL (3.85-5.65) H 04/18/24 14:29 Hgb 16.80 g/dL (11.27-16.99) 04/18/24 14:29 Hct 48.0 % (37-53) 04/18/24 14: MCV 83.8 fl (82-101) 04/18/24 14:29 MCH 29.3 pg (27-33) 04/18/24 14: MCHC 35.0 g/dL (30-55) 04/18/24 14: RDW 12.0 % (12.1-15.1) L 04/18/24 14: Plt Count 242 10^3/cmm (157-399) 04/18/24 14:29 MPV 11.0 fL (7.4-10.4) H 04/18/24 14: Neut % (Auto) 45.7 % 04/18/24 14:29 Lymph % (Auto) 41.2 % 04/18/24 14:29 [place] % (Auto) 10.8 % 04/18/24 14: Eos % (Auto) 1.2 % 04/18/24 14: Baso % (Auto) 0.9 % 04/18/24 14: Neut # (Auto) 2.59 10^3/uL (1.8-7.7) 04/18/24 14:29 Lymph # (Auto) 2.3 10^3/uL (0.8-4.8) 04/18/24 14:29 [place] # (Auto) 0.6 10^3/uL (0.2-0.9) 04/18/24 14: Eos # (Auto) 0.1 10^3/uL (0.0-0.8) 04/18/24 14:29 Baso # (Auto) 0.1 10^3/uL (0.0-0.1) 04/18/24 14:29 Nucleated RBC % (auto) 0 % 04/18/24 14: Nucleated RBCs # 0.0 /100WBC 04/18/24 14:29 ESR 1 mm/hr (0-10) 04/18/24 14:29 D-Dimer 0.37 ug/mLFEU (0-0.59) 04/18/24 14:29 Sodium 140 mmol/L (136-145) 04/18/24 14:29 Potassium 4.3 mmol/L (3.5-5.1) 04/18/24 14:29 Chloride 101 mmol/L (98-107) 04/18/24 14:29 Carbon Dioxide 25 mmol/L (22-29) 04/18/24 14:29 Anion Gap 18.3 (5-19) 04/18/24 14:29 BUN 13 mg/dL (6-20) 04/18/24 14:29 Creatinine 0.9 mg/dL (0.7-1.2) 04/18/24 14:29 GFR Calculation 102.8 mL/min (90-130) 04/18/24 14:29 Glucose 101 mg/dL (65-115) 04/18/24 14:29 Estimat Average Glucose 105 04/18/24 14:29 Hemoglobin A1c 5.3 % (4.0-6.0) 04/18/24 14:29 Calculated Osmolality 290 mOsm/kg (285-295) 04/18/24 14:29 Calcium 9.8 mg/dL (8.5-10.5) 04/18/24 14:29 Total Bilirubin 0.8 mg/dL (0.15-1.2) 04/18/24 14:29 AST 20 U/L (0-40) 04/18/24 14:29 ALT 27 U/L (0-41) 04/18/24 14:29 Alkaline Phosphatase 102 U/L (40-130) 04/18/24 14:29 Troponin T Baseline < 6 ng/L (0-15) 04/18/24 14:29 Troponin T 120 Minute 16.11 ng/L (0-15) H 04/18/24 15:44 Delta Troponin T 10.27006 ABS# (0-10) H* 04/18/24 15:44 C-Reactive Protein 3.0 mg/L (0.0-4.9) 04/18/24 14:29 Total Protein 6.7 g/dL (6.6-8.7) 04/18/24 14:29 Albumin 5.1 g/dL (3.5-5.2) 04/18/24 14:29 Globulin 1.6 g/dL (1.3-4.6) 04/18/24 14:29 Triglycerides 83 mg/dL (0-150) 04/18/24 14:29 Cholesterol 192 mg/dL (0-200) 04/18/24 14:29 LDL Cholesterol, Calc 134 mg/dL (50-129) H 04/18/24 14:29 HDL Cholesterol 41 mg/dL (60-100) L 04/18/24 14:29 LDL/HDL Ratio 3.27 RATIO (0.00-3.22) H 04/18/24 14:29 Cholesterol/HDL Ratio 4.68 mg/dL (1.0-5.00) 04/18/24 14:29 TSH 2.63 uIU/mL (0.27-4.20) 04/18/24 14:29 All radiology interpretation(s) finalized by discharge Discharge Plan Discharge Patient Disposition: Admitted As Inpatient Admit Provider: Scott Macedo Clinical Impression: Chest pain, Tachycardia, Elevated troponin I level Condition: Stable Discharge Diet: Cardiac Discharge Activity: Resume usual activity Coding Level of Care Code ED Public Health Analyst for Unique Lopez
[2024-04-18 14:43] LABS: Basophils # 0.1 10^3/uL (0.0-0.1); Basophils % 0.9 %; Eosinophils # 0.1 10^3/uL (0.0-0.8); Eosinophils % 1.2 %; Lymphocytes # 2.3 10^3/uL (0.8-4.8); Lymphocytes % 41.2 %; Mean Corpuscular Hemoglobin 29.3 pg (27-33); Mean Corpuscular Volume 83.8 fl (82-101); Monocytes # 0.6 10^3/uL (0.2-0.9); Monocytes % 10.8 %; Neutrophils # 2.59 10^3/uL (1.8-7.7); Neutrophils % 45.7 %; Nucleated Red Blood Cells % 0 %; Platelet Count 242 10^3/cmm (157-399); Red Blood Count 5.73 10^6/uL (3.85-5.65); White Blood Count 5.66 10^3/uL (3.29-11.43)
[2024-04-18 15:00] LABS: Troponin(5th) Baseline < 6 ng/L (0-15)
--- NOTE | 2024-04-18 15:07 | ECG_ITS ---
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2000 Requested By: Kaveh Vyas Order Number: [id number] Jason MD: JAVIER MARIEE Measurements Intervals [place] Rate: 69 P: 4 [place]: 177 QRS: 32 QRSD: 110 T: 21 QT: 404 QTc: 434 Interpretive Statements SINUS RHYTHM POSSIBLE RIGHT VENTRICULAR CONDUCTION DELAY [RSR (QR) IN V1/V2] NONSPECIFIC ST ELEVATION [0.05+ mV ST ELEVATION] Compared to ECG 04/18/2024 12:37:28 ST (T wave) deviation now present Incomplete right bundle-branch block no longer present T-wave abnormality no longer present Electronically Signed On 04-19-2024 00:30:50 SHIPFITTER HELPER by JAVIER MARIEE [id number]
[2024-04-18 15:10] LABS: Alanine Aminotransferase 27 U/L (0-41); Albumin Level 5.1 g/dL (3.5-5.2); Alkaline Phosphatase 102 U/L (40-130); Anion Gap 18.3 (5-19); Aspartate Amino Transferase 20 U/L (0-40); Blood Urea Nitrogen 13 mg/dL (6-20); Calcium 9.8 mg/dL (8.5-10.5); Carbon Dioxide 25 mmol/L (22-29); Chloride 101 mmol/L (98-107); Creatinine Clr Calc Pharmacy 134.8517; Globulin 1.6 g/dL (1.3-4.6); Glomerular Filtration Rate 102.8 mL/min (90-130); Glucose 101 mg/dL (65-115); Osmolality Calculated 290 mOsm/kg (285-295); Potassium 4.3 mmol/L (3.5-5.1); Sodium 140 mmol/L (136-145); Thyroid Stimulating Hormone 2.63 uIU/mL (0.27-4.20); Total Bilirubin 0.8 mg/dL (0.15-1.2); Total Protein 6.7 g/dL (6.6-8.7)
--- NOTE | 2024-04-18 15:14 | XRR_ITS ---
PROCEDURE INFORMATION: Exam: XR Chest Exam date and time: 04/18/2024 3:23 PM Age: 23 years old Clinical indication: Cough and dyspnea; Additional info: Dyspnea/cough TECHNIQUE: Imaging protocol: Radiologic exam of the chest. Views: 1 view. COMPARISON: CR XR chest 1V portable [id number] 07/15/2023 9:53 PM FINDINGS: Lungs: Unremarkable. No consolidation. Pleural spaces: Unremarkable. No pleural effusion. No pneumothorax. Heart/Mediastinum: Unremarkable. No cardiomegaly. Bones/joints: Unremarkable. XR/XR chest 1V portable [id number] IMPRESSION: No acute findings.
[2024-04-18 16:55] LABS: Troponin 5 2HR 16.11 ng/L (0-15)
[2024-04-18 16:56] LABS: Troponin 5 2HR Delta 10.11001 ABS# (0-10)
[2024-04-18 17:13] LABS: Erythrocyte Sedimentation Rate 1 mm/hr (0-10)
[2024-04-18] MEDS: aspirin 81 mg Chew Tablet 324 MG PO (17:42)
--- NOTE | 2024-04-18 17:52 | P.HP_ITS ---
Providers/Chief Complaint 2 Admitting Physician: Scott Macedo MD Chief Complaint: high heart rate History of Present Illness Reji Mancera is a 23 year old male with a past medical history of palpitations, tachycardia who presents [facility] for chest palpitations. Patient tells me that this afternoon, he was playing video games, when he suddenly noticed chest palpitations, feeling jittery, no diaphoresis, no neck pain, no chest pain per se, no shortness of breath, due to persistence of his chest palpitations he came to the emergency room for evaluation. Patient reports a prior history of chest palpitations for which she saw Dr. Paez, he was on metoprolol he was supposed to do a treadmill stress test but has not followed up to do that. Nonetheless he has had a treadmill stress test back in 2017, initial report showed that it was within normal limits. He has had an echocardiogram in 2017 that was within normal limits. He denies any alcohol use. He does report vaping daily. He denies any drug use. He denies any overuse of caffeine, he is last drink of soda was a few days ago. He denies drinking any red bowls or any energy drinks. 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 [place], Review of Systems 2 Const: Denies: fever(s) or chills Eyes: Denies: change in vision Card: Reports: palpitations; Denies: chest pain Resp: Denies: dyspnea GI: Denies: abdominal pain : Denies: flank pain Neuro: Denies: headache(s), numbness in extremities or weakness in extremities Medications/Allergies Home Medications Medication Instructions Recorded Confirmed Last Taken Type hydroxyzine pamoate 25 mg capsule 25 mg PO TID 04/18/24 04/18/24 Unknown History metoprolol tartrate 25 mg tablet 25 mg PO BID 04/18/24 04/18/24 Unknown History Allergies Allergy/AdvReac Type Severity Reaction Status Date / Time naproxen Allergy ADR/ALGY-Pa Verified 10/11/23 11:29 lpitations PFSH Acute 2 PFSH: Medical History Tachycardia Surgical History No pertinent past surgical history Family History Other No pertinent family history Social History Smoking and tobacco/nicotine status: current every day tobacco/nicotine user e- cigarettes E-Cigarette Details: with nicotine and smokeless tobacco Alcohol intake: never Substance/Drug Use: never Vitals/I&O/Wt Last Vital Signs Temp 97.5 F L 04/18/24 12:39 Pulse 70 04/18/24 15:16 Resp 21 H 04/18/24 15:16 BP 105/68 04/18/24 15:16 Pulse Ox 98 04/18/24 15:16 O2 Del Method Room Air 04/18/24 13:50 Weight last 48 hrs Weight 83.915 kg Physical Exam 2 Const: COMMON NORMALS: no acute distress and patient oriented x3 HENMT: COMMON NORMALS: normocephalic HEAD & SCALP: normocephalic Neck/C-Spine: COMMON NORMALS: no JVD Resp: COMMON NORMALS: normal respiratory effort, No retractions, No use of accessory muscles and clear to auscultation bilaterally AUSCULTATION: clear to auscultation bilaterally Cardio: COMMON NORMALS: regular rate, regular rhythm, S1 normal heart sound present and S2 normal heart sound present RATE: regular rate RHYTHM: r egular rhythm HEART SOUNDS: S1 normal heart sound present and S2 normal heart sound present GI: COMMON NORMALS: Normal to inspection, nondistended, normoactive bowel sounds present, Soft to palpation and non-tender Extremity: COMMON NORMALS: no calf tenderness and no pedal edema Neuro: COMMON NORMALS: patient oriented x3 and CN's II-XII intact bilaterally Psych: COMMON NORMALS: mental status grossly normal Data 04/18/24 14:29 04/18/24 14:29 A&P Assessment and plan (1) Tachycardia: Plan Tachycardia # Positive delta troponin, EKG no acute ST-T wave changes # No chest pain complaints ? Serial EKGs, serial troponins, telemetry monitoring # TSH, A1c, lipid panel # Urine drug screen, serum drug screen ? Telemetry monitoring ? Cardiac echo # D-dimer # Monitor closely Cardiology consult # Full code scd for DVT prophylaxis, Spoke to patient, spoke to ER physician Attestations 2 Medical Necessity Statement*: Patient requires hospitalization for tachycardia, positive delta troponin Diagnoses Tachycardia R00.0
--- NOTE | 2024-04-18 18:00 | USCV_ITS ---
Reji Mancera Age: 23 Gender: M : 2000 Exam Date: 04/18/2024 18:24 Ordering Phys: Scott Macedo MD Technologist: LILIAN Exam Location: [facility] [place] Indication: Chronic palpitations x 8 years. BP: 105 / 68 HR: 70 Rhythm: Sinus Technical Quality: Good MEASUREMENTS (Male / Female) Normal Values 2D ECHO LV Diastolic Diameter PLAX 4.7 cm 4.2 - 5.9 / 3.9 - 5.3 cm IVS Diastolic Thickness 0.9 cm 0.6 - 1.0 / 0.6 - 0.9 cm IVS Systolic Thickness 1.2 cm LVPW Diastolic Thickness 1.0 cm 0.6 - 1.0 / 0.6 - 0.9 cm LVPW Systolic Thickness 1.6 cm LVOT Diameter 2.1 cm LV Ejection Fraction 2D Teich 66.5 % LV Ejection Fraction MOD 4C 65.1 % LV Ejection Fraction MOD 2C 65.5 % LV Ejection Fraction 2C AL 65.6 % LA Diameter 3.6 cm Aorta at Sinotubular Diameter 3.1 cm IVC Diameter 1.2 cm M-MODE LA Ao Ratio MM 1.3 AV Cusp Separation MM 1.9 cm DOPPLER AV Peak Velocity 126.0 cm/s LVOT Peak Velocity 96.0 cm/s AV Area Cont Eq vti 2.6 cm squared AV Area Cont Eq pk 2.5 cm squared MV Peak Velocity 94.0 cm/s MV Area PHT 3.7 cm squared Mitral E to A Ratio 1.3 TV Peak E Velocity 71.0 cm/s PV Peak Velocity 117.0 cm/s FINDINGS Left Ventricle Normal left ventricular size, systolic function and wall thickness, with no regional wall motion abnormalities. Left ventricular ejection fraction is estimated at 60 %. Normal left ventricular filling pressure. Right Ventricle The right ventricle is normal in size and function. RVSP could not be calculated due to incomplete tricuspid regurgitation velocity profile. Right Atrium The right atrium is normal in size. Left Atrium The left atrium is normal in size. Mitral Valve Structurally normal mitral valve without significant stenosis or prolapse. There is no mitral regurgitation. Aortic Valve Structurally normal aortic valve without significant sclerosis or stenosis. There is no aortic regurgitation. Tricuspid Valve Grul-bp-lxclepwf tricuspid valve regurgitation. Pulmonic Valve Structurally normal pulmonic valve without significant stenosis. There is no pulmonic regurgitation. Pericardium Normal pericardium without effusion. Aorta Normal ascending aorta dimension. IVC The inferior vena cava appears normal. CONCLUSIONS Normal left ventricular size, systolic function and wall thickness, with no regional wall motion abnormalities. Left ventricular ejection fraction is estimated at 60 %. Hdcl-of-feadgggk tricuspid valve regurgitation. There is no pericardial effusion. Right atrial pressure is around 5 mm of mercury. Davidson Posey MD (Electronically Signed) Final Date: 18 April 2024 23:01 S
[2024-04-18 18:15] LABS: Chol HDL Ratio 4.68 mg/dL (1.0-5.00); Cholesterol 192 mg/dL (0-200); HDL Cholesterol 41 mg/dL (60-100); LDL Cholesterol Calculated 134 mg/dL (50-129); LDL HDL Ratio 3.27 RATIO (0.00-3.22); Triglycerides 83 mg/dL (0-150)
[2024-04-18 18:20] LABS: D Dimer 0.37 ug/mLFEU (0-0.59)
[2024-04-18] MEDS: pantoprazole 40 mg SDV IVP (19:16)
[2024-04-18] MEDS: flu vacc pf 24-25 (6 mos+) SYRINGE 45 MCG IM (19:26)
[2024-04-18 19:31] LABS: Troponin 5 6HR 8.63 ng/L (0-15); Troponin 5 6HR Delta 2.63001 ng/L (0-12)
[2024-04-18 19:56] LABS: Estmated Average Glucose 105; Hemoglobin A1C 5.3 % (4.0-6.0)
--- NOTE | 2024-04-18 20:16 | ECG_ITS ---
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2000 Requested By: Kaveh Vyas Order Number: [id number] Jason MD: JAVIER MARIEE Measurements Intervals [place] Rate: 70 P: 13 [place]: 166 QRS: 3 QRSD: 109 T: 33 QT: 404 QTc: 437 Interpretive Statements SINUS RHYTHM INCOMPLETE RIGHT BUNDLE BRANCH BLOCK [90+ ms QRS DURATION, TERMINAL R IN V1/V2, 40+ ms S IN I/aVL/V4/V5/V6] NONSPECIFIC ST & T-WAVE ABNORMALITY Compared to ECG 04/18/2024 14:32:09 Incomplete right bundle-branch block now present T-wave abnormality now present ST (T wave) deviation no longer present Electronically Signed On 04-19-2024 00:27:27 EDUCATIONAL TECHNOLOGY COORDINATOR by JAVIER MARIEE [id number]
[2024-04-18 21:43] LABS: Amphetamines Screen Urine Negative (Negative); Barbiturates Screen Urine Negative (Negative); Benzodiazepines Screen Urine Negative (Negative); Cocaine Screen Urine Negative (Negative); Opiate Screen Urine Negative (Negative); PCP Screen Urine Negative (Negative); THC Screen Urine Positive (Negative)
[2024-04-19] VITALS (7 sets, daily range): BP systolic 91–124; BP diastolic 51–76; PULSE 52–82; RESP 14–21; TEMP 36.6–37.1; O2SAT 96–99
--- NOTE | 2024-04-19 11:22 | P.DS_ITS ---
Discharge Providers Date of Admission: 04/18/24 17:33 Date of Discharge: April 19, 2024 Attending Provider at Admission: Scott Macedo MD Attending Provider at Discharge: Scott Macedo MD Diagnoses at Discharge Discharge Diagnosis (1) Tachycardia: Status: Acute Reason for Visit Reason for Visit: high heart rate Hospital Course Hospital Course Reji Mancera is a 23 year old male with a past medical history of palpitations, tachycardia who presents [facility] for chest palpitations. Patient tells me that this afternoon, he was playing video games, when he suddenly noticed chest palpitations, feeling jittery, no diaphoresis, no neck pain, no chest pain per se, no shortness of breath, due to persistence of his chest palpitations he came to the emergency room for evaluation. Patient reports a prior history of chest palpitations for which she saw Dr. Paez, he was on met oprolol he was supposed to do a treadmill stress test but has not followed up to do that. Nonetheless he has had a treadmill stress test back in 2017, initial report showed that it was within normal limits. He has had an echocardiogram in 2017 that was within normal limits. He denies any alcohol use. He does report vaping daily. He denies any drug use. He denies any overuse of caffeine, he is last drink of soda was a few days ago. He denies drinking any red bowls or any energy drinks. 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 cardiac echo CONCLUSIONS Normal left ventricular size, systolic function and wall thickness, with no regional wall motion abnormalities. Left ventricular ejection fraction is estimated at 60 %. [id number] tricuspid valve regurgitation. There is no pericardial effusion. Right atrial pressure is around 5 mm of mercury. -Cardiology was consulted ? Discharged on metoprolol 25 mg daily, aspirin 81, with event monitor ? Patient was advised if he were to have any recurrent episodes to come back to the hospital Is follow-up with cardiology as outpatient for consideration of stress testing as per cardiology's recommendations Patient was advised to avoid caffeine, dark chocolate, power drinks, vaping Physical Exam Const: COMMON NORMALS: no acute distress and patient oriented x3 Neck/C-Spine: COMMON NORMALS: no JVD Resp: COMMON NORMALS: normal respiratory effort, No retractions, No use of accessory muscles and clear to auscultation bilaterally AUSCULTATION: clear to auscultation bilaterally Cardio: COMMON NORMALS: no JVD, regular rate, regular rhythm, S1 normal heart sound present and S2 normal heart sound present RATE: regular rate RHYTHM: regular rhythm HEART SOUNDS: S1 normal heart sound present and S2 normal heart sound present GI: COMMON NORMALS: Normal to inspection, nondistended, normoactive bowel sounds present and non-tender Extremity: COMMON NORMALS: no pedal edema Neuro: COMMON NORMALS: patient oriented x3 Psych: COMMON NORMALS: mental status grossly normal Discharge Data Studies Completed and Pending Completed Studies During Hospitalization Category Date Time Status XR chest 1V portable [id number] Stat Exams 04/18/24 15:14 Completed CV. echo complete* [id number] Routine Ultrasound 04/18/24 18:00 Completed Pending at discharge Category Date Time Status Drug Screen Serum [Serum Drug Panel 7] Stat Lab 04/18/24 19:02 Received Radiology Impressions Chest X-Ray 04/18/24 15:14 IMPRESSION: No acute findings. Laboratory Results WBC 5.66 10^3/uL (3.29-11.43) 04/18/24 14:29 RBC 5.73 10^6/uL (3.85-5.65) H 04/18/24 14:29 Hgb 16.80 g/dL (11.27-16.99) 04/18/24 14:29 Hct 48.0 % (37-53) 04/18/24 14:29 MCV 83.8 fl (82-101) 04/18/24 14:29 MCH 29.3 pg (27-33) 04/18/24 14:29 MCHC 35.0 g/dL (30-55) 04/18/24 14:29 RDW 12.0 % (12.1-15.1) L 04/18/24 14:29 Plt Count 242 10^3/cmm (157-399) 04/18/24 14: MPV 11.0 fL (7.4-10.4) H 04/18/24 14: Neut % (Auto) 45.7 % 04/18/24 14: Lymph % (Auto) 41.2 % 04/18/24 14: [place] % (Auto) 10.8 % 04/18/24 14: Eos % (Auto) 1.2 % 04/18/24 14: Baso % (Auto) 0.9 % 04/18/24 14: Neut # (Auto) 2.59 10^3/uL (1.8-7.7) 04/18/24 14: Lymph # (Auto) 2.3 10^3/uL (0.8-4.8) 04/18/24 14: [place] # (Auto) 0.6 10^3/uL (0.2-0.9) 04/18/24 14: Eos # (Auto) 0.1 10^3/uL (0.0-0.8) 04/18/24 14: Baso # (Auto) 0.1 10^3/uL (0.0-0.1) 04/18/24 14: Nucleated RBC % (auto) 0 % 04/18/24 14: Nucleated RBCs # 0.0 /100WBC 04/18/24 14: ESR 1 mm/hr (0-10) 04/18/24 14: D-Dimer 0.37 ug/mLFEU (0-0.59) 04/18/24 14: Sodium 140 mmol/L (136-145) 04/18/24 14:29 Potassium 4.3 mmol/L (3.5-5.1) 04/18/24 14: Chloride 101 mmol/L (98-107) 04/18/24 14: Carbon Dioxide 25 mmol/L (22-29) 04/18/24 14: Anion Gap 18.3 (5-19) 04/18/24 14: BUN 13 mg/dL (6-20) 04/18/24 14: Creatinine 0.9 mg/dL (0.7-1.2) 04/18/24 14:29 GFR Calculation 102.8 mL/min (90-130) 04/18/24 14: Glucose 101 mg/dL (65-115) 04/18/24 14: Estimat Average Glucose 105 04/18/24 14:29 Hemoglobin A1c 5.3 % (4.0-6.0) 04/18/24 14:29 Calculated Osmolality 290 mOsm/kg (285-295) 04/18/24 14:29 Calcium 9.8 mg/dL (8.5-10.5) 04/18/24 14:29 Total Bilirubin 0.8 mg/dL (0.15-1.2) 04/18/24 14:29 AST 20 U/L (0-40) 04/18/24 14:29 ALT 27 U/L (0-41) 04/18/24 14:29 Alkaline Phosphatase 102 U/L (40-130) 04/18/24 14:29 Troponin T Baseline < 6 ng/L (0-15) 04/18/24 14:29 Troponin T 120 Minute 16.11 ng/L (0-15) H 04/18/24 15:44 Delta Troponin T 10.09048 ABS# (0-10) H* 04/18/24 15:44 Troponin T Hi Sens 6Hr 8.63 ng/L (0-15) 04/18/24 19:02 Troponin T Hi Sens 6Hr Delta 2.03609 ng/L (0-12) 04/18/24 19:02 C-Reactive Protein 3.0 mg/L (0.0-4.9) 04/18/24 14:29 Total Protein 6.7 g/dL (6.6-8.7) 04/18/24 14:29 Albumin 5.1 g/dL (3.5-5.2) 04/18/24 14: Globulin 1.6 g/dL (1.3-4.6) 04/18/24 14:29 Triglycerides 83 mg/dL (0-150) 04/18/24 14:29 Cholesterol 192 mg/dL (0-200) 04/18/24 14:29 LDL Cholesterol, Calc 134 mg/dL (50-129) H 04/18/24 14:29 HDL Cholesterol 41 mg/dL (60-100) L 04/18/24 14: LDL/HDL Ratio 3.27 RATIO (0.00-3.22) H 04/18/24 14:29 Cholesterol/HDL Ratio 4.68 mg/dL (1.0-5.00) 04/18/24 14:29 TSH 2.63 uIU/mL (0.27-4.20) 04/18/24 14:29 Urine Opiates Screen Negative ng/mL (Negative) 04/18/24 21:02 Ur Barbiturates Screen Negative ng/mL (Negative) 04/18/24 21:02 Ur Phencyclidine Scrn Negative ng/mL (Negative) 04/18/24 21:02 Ur Amphetamines Screen Negative ng/mL (Negative) 04/18/24 21:02 U Benzodiazepines Scrn Negative ng/mL (Negative) 04/18/24 21:02 Urine Cocaine Screen Negative ng/mL (Negative) 04/18/24 21:02 U Marijuana (THC) Screen Positive ng/mL (Negative) H 04/18/24 21:02 Vitals Last Vital Signs Temp 98.2 F 04/19/24 08:00 Pulse 74 04/19/24 08:00 Resp 15 04/19/24 08:00 BP 112/63 04/19/24 08:00 Pulse Ox 96 04/19/24 07:51 O2 Del Method Room Air 04/19/24 07:51 Discharge Plan Discharge Patient Disposition: Home Condition: Stable Prescriptions: New metoprolol succinate 25 mg Tablet Extended Release 24 Hr 25 mg PO DAILY 30 Days Qty: 30 0RF aspirin 81 mg capsule 81 mg PO DAILY 30 Days Qty: 30 0RF Continued hydroxyzine pamoate 25 mg capsule 25 mg PO TID Discontinued metoprolol tartrate 25 mg tablet 25 mg PO BID Discharge Orders: Discharge Order (Routine); Ordered 04/19/24 Ordered By: Scott Macedo Other Ambulatory Orders: MCT/Event Monitor 30 Days (Routine) Timeframe: 1 Day Facility: [facility] - Location: Radiology Ordered By: Scott Macedo Referrals: Davidson Posey MD [Physician] - 7-10 days Leann Barber FNP [Referring] - 04/30/24 9:00 am (Please bring your 2022 taxes to the appointment for review to see if you qualify for the sliding scale program. ) Discharge Diet: Cardiac Discharge Activity: Resume usual activity Patient Instructions: Metoprolol (By mouth), Hydroxyzine (By mouth), Opioid Safety Activity Restrictions/Additional Instructions: - If any recurrent palpitations please go to emergency room -comeback monday to fit event monitor -follow up for outpatient cardiac stress test Stand Alone Forms: Work/School Release Discharge Attestations Time Spent in Discharge Care*: greater than 30 min Time Spent in Smoking Cessation: 3 to 10 minutes Quality Metrics Clinical Quality Measures [ No reported AMI, CVA or VTE this stay] Coding Level of Care Code 49527 Total time (in minutes) for Discharge: 45 Diagnoses Tachycardia R00.0
--- NOTE | 2024-04-19 11:59 | PC.NURSE ---
Discharge Note Patient discharged to home via POV accompanied by spouse. 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 Mobile pharmacy medications and/or prescriptions provided. Belongings/home medications returned.
--- NOTE | 2024-04-19 14:06 | P.CONIM_ITS ---
Providers/Reason For Consult 2 Consulting Physician/Specialty*: Dr. Ni/cardiology Reason for Consult*: Tachycardia elevated cardiac enzymes/ Requesting Physician: Dr. Macedo Attending Physician: Scott Macedo MD History of Present Illness History of Present Illness Reji Mancera is a 23 year old male who was admitted to the ER with an episode of palpitation associated with some chest pain. Patient has a history of a similar episode in the past. In the past there was an also association of some drug abuse (cocaine) with the a palpitation/tachycardia. At this time he categorically denies use of any drugs or any stimulant drinks. On arrival to the ER the EKG showed sinus tachycardia. Apparently there has been some questionable history of SVT in the past however there is no documented record of same in our system. I currently he is asymptomatic. He is ambulating well. On detailed history he has a fairly good exercise tolerance. Daily routine activities and even on exertion he denies any chest pain or shortness of air. His only with the episodes of palpitations/tachycardia he becomes symptomatic with the shortness of air and some presyncopal symptoms. No history of any syncope. In the past he was prescribed metoprolol as needed for the palpitation which in fact he never took it. Echocardiogram yesterday showed normal LV function. There is a mild to moderate tricuspid regurgitation. His troponin mildly elevated the second set. The EKG did not show any ST changes. Review of Systems 2 Narrative: Detailed 10 point systemic review unremarkable except for as mentioned above in the history of present illness. Patient is fairly active in his daily routine life without any symptoms. Medications/Allergies Home Medications Medication Instructions Recorded Confirmed Last Taken Type hydroxyzine pamoate 25 mg capsule 25 mg PO TID 04/18/24 04/18/24 Unknown History metoprolol tartrate 25 mg tablet 25 mg PO BID 04/18/24 04/18/24 Unknown History Allergies Allergy/AdvReac Type Severity Reaction Status Date / Time naproxen Allergy ADR/ALGY-Pa Verified 10/11/23 11:29 lpitations PFSH Acute 2 PFSH: Medical History Tachycardia Surgical History No pertinent past surgical history Family History Other No pertinent family history Social History Smoking and tobacco/nicotine status: current every day tobacco/nicotine user e- cigarettes E-Cigarette Details: with nicotine and smokeless tobacco Alcohol intake: never Substance/Drug Use: never Vitals/I&O/Wt Last Vital Signs Temp 97.8 F 04/19/24 11:58 Pulse 80 04/19/24 11:58 Resp 21 H 04/19/24 11:58 BP 124/76 04/19/24 11:58 Pulse Ox 96 04/19/24 11:58 O2 Del Method Room Air 04/19/24 11:58 04/18/24 04/19/24 04/19/24 22:59 06:59 14:59 Intake Total 480 / 480 220 / 220 Balance 480 / 480 220 / 220 Weight last 48 hrs Weight 176 lb 9.6 oz Weight 176 lb 6 oz Weight 185 lb Physical Exam 2 Narrative: Patient sitting comfortably on the bed. Not in any respiratory distress. Vitals are stable. Const: COMMON NORMALS: no acute distress, average body habitus, patient oriented x3, no limitations, healthy appearing and alert HENMT: OTHER: Normal Eye: OTHER: Normal Chest: OTHER: Normal chest. No tenderness. Normal respiratory movement. Resp: OTHER: Chest clear to auscultation bilaterally. No added sounds. Cardio: OTHER: Normal heart exams. Normal first and second heart sounds. No JVD. Extremity: OTHER: Normal extremities. No lower extremity edema. Neuro: COMMON NORMALS: patient oriented x3 SENSORIUM/ORIENTATION: Yes alert Skin: OTHER: Skin warm and normal. Data 04/18/24 14:29 04/18/24 14:29 A&P Assessment and plan (1) Tachycardia: 23-year-old male patient with episode of palpitation associated with chest pain and shortness of air. History of same in the past. Clinically it appears he gets paroxysmal runs of likely SVT. Baseline EKG normal. The cardiac enzyme elevation is likely secondary to tachycardia. In the past the symptoms were associated with cocaine however at this time he categorically denies any drug abuse or use of any stimulant drinks. Echocardiogram is normal. Cardiovascular exam is within normal limits. Recommendation 1. Low-dose of beta-jennifer metoprolol extended release 25 mg once a day. Added low-dose aspirin 81 mg once a day. 2. A 30-day event monitor as an outpatient 3. Follow-up in the cardiac clinic and for outpatient stress test -treadmill stress test Patient is okay to be discharged and follow-up in the cardiology clinic in 2 to 3 weeks. (2) Anxiety: Coding Level of Care Code 02765 Diagnoses Tachycardia R00.0 Anxiety F41.9 Time Spent (min) 20
--- NOTE | 2024-04-19 15:30 | PC.NURSE ---
Patient seen by ADDY Sanders this morning. Patient was discharged prior to Dr. Ni seeing him. Patient reported back to hospital and was then seen by Cardiology. Patient will follow up with cardiology in one week, have event monitor mailed to him on Monday, and follow up with an outpatient stress test. Patient understands instructions and verbalizes agreement.
== END 2024-04-19 11:59 | disposition home or self-care (01) ==
LOC: ER 14:47 → CSU 17:34
PROVIDERS: Admitting Provider Family Medicine; Emergency Provider Family Medicine; Visit Provider Family Medicine
DX: R00.0 Tachycardia, unspecified (principal); F41.9 Anxiety disorder, unspecified; F17.200 Nicotine dependence, unspecified, uncomplicated
CPT/HCPCS: 36415; 71045; 80053; 80061; 80306; 80307; 83036; 84443; 84484; 85025; 85378; 85651; 86140; 90471; 90686; 93005; 93306; 96374; 96376; 99285; G0378; J2470

== ENCOUNTER 2024-04-20 21:31 | Emergency (ER) | payer SELFPAY ==
--- NOTE | 2024-04-20 21:36 | ECG_ITS ---
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 Measurements Intervals [place] Rate: 86 P: 65 [place]: 154 QRS: 77 QRSD: 105 T: 48 QT: 376 QTc: 452 Interpretive Statements SINUS RHYTHM INCOMPLETE RIGHT BUNDLE BRANCH BLOCK NONSPECIFIC ST & T-WAVE ABNORMALITY Compared to ECG 04/18/2024 20:16:33 No significant changes Electronically Signed On 04-21-2024 14:03:25 [employer] by Chivo Ni M.D. [email or web address]
[2024-04-20 21:39] VITALS: BP 118/68; PULSE 80; RESP 16; TEMP 36.5; O2SAT 98
--- NOTE | 2024-04-20 22:01 | XRR_ITS ---
PROCEDURE INFORMATION: Exam: XR Chest Exam date and time: 04/20/2024 10:07 PM Age: 23 years old Clinical indication: Pain; Chest pressure; Patient HX: Palpitations; Additional info: Cp TECHNIQUE: Imaging protocol: Radiologic exam of the chest. Views: 1 view. COMPARISON: CR XR chest 1V portable [id number] 04/18/2024 3:23 PM FINDINGS: Lungs: Unremarkable. No consolidation. Pleural spaces: Unremarkable. No pleural effusion. No pneumothorax. Heart/Mediastinum: Unremarkable. No cardiomegaly. Bones/joints: Unremarkable. XR/XR chest 1V portable [id number] IMPRESSION: No acute findings.
[2024-04-20 22:07] LABS: Basophils # 0.1 10^3/uL (0.0-0.1); Basophils % 0.9 %; Eosinophils # 0.1 10^3/uL (0.0-0.8); Eosinophils % 1.3 %; Hematocrit 47.8 % (37-53); Lymphocytes # 3.2 10^3/uL (0.8-4.8); Lymphocytes % 41.2 %; Mean Corpuscular HGB Conc 34.9 g/dL (30-55); Mean Corpuscular Hemoglobin 29.5 pg (27-33); Mean Corpuscular Volume 84.5 fl (82-101); Mean Platelet Volume 10.7 fL (7.4-10.4); Monocytes # 0.7 10^3/uL (0.2-0.9); Monocytes % 8.9 %; Neutrophils # 3.66 10^3/uL (1.8-7.7); Neutrophils % 47.6 %; Nucleated Red Blood Cells % 0 %; Platelet Count 256 10^3/cmm (157-399); Red Blood Count 5.66 10^6/uL (3.85-5.65); Red Cell Distribution Width 11.9 % (12.1-15.1); White Blood Count 7.71 10^3/uL (3.29-11.43)
[2024-04-20 22:24] LABS: Troponin(5th) Baseline < 6 ng/L (0-15)
[2024-04-20 22:35] LABS: Alanine Aminotransferase 18 U/L (0-41); Alkaline Phosphatase 106 U/L (40-130); Anion Gap 17.7 (5-19); Aspartate Amino Transferase 17 U/L (0-40); Blood Urea Nitrogen 12 mg/dL (6-20); Calcium 9.3 mg/dL (8.5-10.5); Carbon Dioxide 25 mmol/L (22-29); Chloride 102 mmol/L (98-107); Creatinine Clr Calc Pharmacy 154.4634; Globulin 2.3 g/dL (1.3-4.6); Glomerular Filtration Rate 117.8 mL/min (90-130); Glucose 105 mg/dL (65-115); Magnesium 1.8 mg/dL (1.7-2.3); NT Pro B Type Natriuretic Pept < 36 pg/mL (0-125); Osmolality Calculated 292 mOsm/kg (285-295); Potassium 3.7 mmol/L (3.5-5.1); Sodium 141 mmol/L (136-145); Thyroid Stimulating Hormone 3.49 uIU/mL (0.27-4.20); Total Bilirubin 0.7 mg/dL (0.15-1.2); Total Protein 7.3 g/dL (6.6-8.7)
[2024-04-20] MEDS: LORazepam 2 mg/mL INJ 1 mL IVP (22:36)
[2024-04-20 22:37] LABS: Alcohol Level < 10 mg/dL (0-10)
--- NOTE | 2024-04-20 22:51 | W.ED.ARRPALP ---
HPI - Arrhythmia/Palpitations General: Chief Complaint: Arrhythmia/Palpitations Stated Complaint: shaking, racing heartbeat Time Seen by Provider: 04/20/24 21:56 History of Present Illness: 23-year-old male patient who is admitted 2 days ago with to the cardiac unit for palpitations. At that time, he had had palpitations, and had a interval increase in his troponin of 10 points and 2 hours. His troponin did not rise further. He had mild tricuspid valve regurgitation on echocardiogram. His other laboratory workup including D-dimer TSH etc. was normal. He returns with repeated episode of chest discomfort, and palpitations with shaking of his legs. He notes that the shaking of the legs started while he was in the hospital when he had these episodes. His palpitations are gone currently. He has mild chest discomfort still. His legs are still shaking. He does not have significant shortness of breath. No syncopal episodes. Related Data Home Medications Medication Instructions Recorded Confirmed hydroxyzine pamoate 25 mg capsule 25 mg PO TID 04/18/24 04/18/24 Previous Rx's Medication Instructions Recorded aspirin 81 mg capsule 81 mg PO DAILY 30 days #30 caps 04/19/24 metoprolol succinate 25 mg 25 mg PO DAILY 30 days #30 tabs 04/19/24 tablet,extended release 24 hr Allergies Allergy/AdvReac Type Severity Reaction Status Date / Time naproxen Allergy ADR/ALGY-Pa Verified 04/20/24 21:41 lpitations [facility] ED PFSH: Medical History Tachycardia Surgical History No pertinent past surgical history Family History Other No pertinent family history Social History Smoking and tobacco/nicotine status: current every day tobacco/nicotine user e-cigarettes E-Cigarette Details: with nicotine and smokeless tobacco Alcohol intake: never Substance/Drug Use: never Physical Exam Const: COMMON NORMALS: no acute distress GENERAL APPEARANCE: cooperative; not ill appearing and not frail appearing HENMT: COMMON NORMALS: normocephalic, atraumatic and Normal external nose present HEAD & SCALP: normocephalic and atraumatic FACE & SINUS: normal facial exam and face symmetric NOSE: Normal external nose present Eye: COMMON NORMALS: Equal, round and reactive pupils present and EOMs intact bilaterally PUPIL: Yes Equal, round and reactive pupils present Neck/C-Spine: GENERAL: Yes trachea midline Chest: CHEST: Yes Symmetrical chest wall rise Resp: COMMON NORMALS: normal respiratory effort, No retractions, No use of accessory muscles and clear to auscultation bilaterally AUSCULTATION: clear to auscultation bilaterally Cardio: COMMON NORMALS: regular rate and regular rhythm RATE: regular rate RHYTHM: regular rhythm GI: COMMON NORMALS: Normal to inspection, nondistended, normoactive bowel sounds present Extremity: COMMON NORMALS: no pedal edema Neuro: MADDIE COMA SCALE: document GCS findings [place] coma scale eye opening: Spontaneous Maddie coma scale verbal response: Orientated [place] coma scale motor response: Obey commands Maddie coma scale total score: 15 SENSORY EXAM: Yes extremities (intact) Psych: COMMON NORMALS: speech normal SPEECH: Yes normal speech Skin: COMMON NORMALS: no rashes or lesions noted GENERAL SKIN EXAM: no rashes or lesions noted Course Vital Signs: Vital signs: Vital Signs Temperature 97.7 F 04/20/24 21:39 Pulse Rate 74 04/20/24 23:14 Respiratory Rate 18 04/20/24 23:14 Blood Pressure 120/72 04/20/24 23:14 Pulse Oximetry 98 04/20/24 23:14 Oxygen Delivery Me thod Room Air 04/20/24 21:39 MDM - Arrhythmia/Palpitations Medical Decision Making The patient is visibly anxious on exam. Otherwise his exam is normal. His CBC is normal. His BMP is normal. Cardiac enzymes are nondetectable as is BNP. TSH is normal. D-dimer is normal. He is to be set up for a Holter monitor next week. He is given lorazepam with improvement in his leg shaking, and palpitations. He will be discharged home. Lab Data 04/20/24 21:52 04/20/24 21:52 Radiology Impressions Chest X-Ray 04/20/24 22:01 IMPRESSION: No acute findings. Laboratory Results WBC 7.71 10^3/uL (3.29-11.43) 04/20/24 21:52 RBC 5.66 10^6/uL (3.85-5.65) H 04/20/24 21:52 Hgb 16.70 g/dL (11.27-16.99) 04/20/24 21:52 Hct 47.8 % (37-53) 04/20/24 21:52 MCV 84.5 fl (82-101) 04/20/24 21:52 MCH 29.5 pg (27-33) 04/20/24 21:52 MCHC 34.9 g/dL (30-55) 04/20/24 21:52 RDW 11.9 % (12.1-15.1) L 04/20/24 21:52 Plt Count 256 10^3/cmm (157-399) 04/20/24 21:52 MPV 10.7 fL (7.4-10.4) H 04/20/24 21:52 Neut % (Auto) 47.6 % 04/20/24 21:52 Lymph % (Auto) 41.2 % 04/20/24 21:52 [place] % (Auto) 8.9 % 04/20/24 21:52 Eos % (Auto) 1.3 % 04/20/24 21:52 Baso % (Auto) 0.9 % 04/20/24 21:52 Neut # (Auto) 3.66 10^3/uL (1.8-7.7) 04/20/24 21:52 Lymph # (Auto) 3.2 10^3/uL (0.8-4.8) 04/20/24 21:52 [place] # (Auto) 0.7 10^3/uL (0.2-0.9) 04/20/24 21:52 Eos # (Auto) 0.1 10^3/uL (0.0-0.8) 04/20/24 21:52 Baso # (Auto) 0.1 10^3/uL (0.0-0.1) 04/20/24 21:52 Nucleated RBC % (auto) 0 % 04/20/24 21:52 Nucleated RBCs # 0.0 /100WBC 04/20/24:52 D-Dimer 0.30 ug/mLFEU (0-0.59) 04/20/24 21:52 Sodium 141 mmol/L (136-145) 04/20/24 21:52 Potassium 3.7 mmol/L (3.5-5.1) 04/20/24 21:52 Chloride 102 mmol/L (98-107) 04/20/24 21:52 Carbon Dioxide 25 mmol/L (22-29) 04/20/24 21:52 Anion Gap 17.7 (5-19) 04/20/24 21:52 BUN 12 mg/dL (6-20) 04/20/24 21:52 Creatinine 0.8 mg/dL (0.7-1.2) 04/20/24 21:52 GFR Calculation 117.8 mL/min (90-130) 04/20/24 21:52 Glucose 105 mg/dL (65-115) 04/20/24 21:52 Calculated Osmolality 292 mOsm/kg (285-295) 04/20/24 21:52 Calcium 9.3 mg/dL (8.5-10.5) 04/20/24 21:52 Magnesium 1.8 mg/dL (1.7-2.3) 04/20/24 21:52 Total Bilirubin 0.7 mg/dL (0.15-1.2) 04/20/24 21:52 AST 17 U/L (0-40) 04/20/24 21:52 ALT 18 U/L (0-41) 04/20/24 21:52 Alkaline Phosphatase 106 U/L (40-130) 04/20/24 21:52 Troponin T Baseline < 6 ng/L (0-15) 04/20/24 21:52 NT-Pro-B Natriuret Pep < 36 pg/mL (0-125) 04/20/24 21:52 Total Protein 7.3 g/dL (6.6-8.7) 04/20/24 21:52 Albumin 5.0 g/dL (3.5-5.2) 04/20/24 21:52 Globulin 2.3 g/dL (1.3-4.6) 04/20/24 21:52 TSH 3.49 uIU/mL (0.27-4.20) 04/20/24 21:52 Ethyl Alcohol < 10 mg/dL (0-10) 04/20/24 21:52 All radiology interpretation(s) finalized by discharge Discharge Plan Discharge Patient Disposition: Home Clinical Impression: Chest pain Qualifiers: Chest pain type: other chest pain Qualified Code(s): R07.89 - Other chest pain Condition: Stable Prescriptions: No Action hydroxyzine pamoate 25 mg capsule 25 mg PO TID metoprolol succinate 25 mg Tablet Extended Release 24 Hr 25 mg PO DAILY 30 Days Qty: 30 0RF aspirin 81 mg capsule 81 mg PO DAILY 30 Days Qty: 30 0RF Discharge Orders: Discharge ED (Routine); Ordered 04/20/24 Ordered By: Milton Barber Patient Instructions: Chest Pain (ED), Heart Palpitations (ED), Opioid Safety, Pain Management Coding Level of Care Code 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
[2024-04-20 23:14] VITALS: BP 120/72; PULSE 74; RESP 18; O2SAT 98
== END 2024-04-20 23:15 | disposition home or self-care (01) ==
PROVIDERS: Emergency Provider Emergency Medicine
DX: R07.89 Other chest pain (principal); Z79.82 Long term (current) use of aspirin; Z72.0 Tobacco use
CPT/HCPCS: 71045; 80053; 80307; 83735; 83880; 84443; 84484; 85025; 85378; 93005; 96374; 99285; J2060

== ENCOUNTER 2024-04-21 21:34 | Emergency (ER) | payer SELFPAY ==
[2024-04-21 21:36] VITALS: BP 129/82; PULSE 80; RESP 18; TEMP 36.5; O2SAT 100; BMI 26.5
[2024-04-21 22:14] VITALS: BP 144/76; PULSE 70; RESP 15; O2SAT 97
--- NOTE | 2024-04-21 22:18 | W.ED.GENADLT ---
HPI - General Adult General: Chief complaint: General Medical Stated complaint: fast heartrate Time Seen by Provider: 04/21/24 21:57 History of Present Illness: 23-year-old male patient who has been to the emergency department 3 times now and is many days. He presents with palpitations. He was evidently sitting on the couch at home, and began to feel these palpitations. His Apple Watch told him that at rest, his heart rate was in the 130s. Currently it is in the 70s. This is the same complaint he has presented with the previous 2 times. Related Data Home Medications Medication Instructions Recorded Confirmed hydroxyzine pamoate 25 mg capsule 25 mg PO TID 04/18/24 04/18/24 Previous Rx's Medication Instructions Recorded aspirin 81 mg capsule 81 mg PO DAILY 30 days #30 caps 04/19/24 metoprolol tartrate 25 mg tablet 25 mg PO BID #60 tabs 04/21/24 Allergies Allergy/AdvReac Type Severity Reaction Status Date / Time naproxen Allergy ADR/ALGY-Pa Verified 04/21/24 21:40 lpitations [facility] ED PFSH: Medical History Tachycardia Surgical History No pertinent past surgical history Family History Other No pertinent family history Social History Smoking and tobacco/nicotine status: current every day tobacco/nicotine user e-cigarettes E-Cigarette Details: with nicotine and smokeless tobacco Alcohol intake: never Substance/Drug Use: never Physical Exam Const: COMMON NORMALS: no acute distress GENERAL APPEARANCE: cooperative; not ill appearing and not frail appearing HENMT: COMMON NORMALS: normocephalic, atraumatic and Normal external nose present HEAD & SCALP: normocephalic and atraumatic FACE & SINUS: normal facial exam and face symmetric NOSE: Normal external nose present Eye: COMMON NORMALS: Equal, round and reactive pupils present and EOMs intact bilaterally PUPIL: Yes Equal, round and reactive pupils present Neck/C-Spine: GENERAL: Yes trachea midline Chest: CHEST: Yes Symmetrical chest wall rise Resp: COMMON NORMALS: normal respiratory effort, No retractions, No use of accessory muscles and clear to auscultation bilaterally AUSCULTATION: clear to auscultation bilaterally Cardio: COMMON NORMALS: regular rate and regular rhythm RATE: regular rate RHYTHM: regular rhythm GI: COMMON NORMALS: Normal to inspection, nondistended, normoactive bowel sounds present Extremity: COMMON NORMALS: no pedal edema Neuro: MADDIE COMA SCALE: document GCS findings Maddie coma scale eye opening: Spontaneous Maddie coma scale verbal response: Orientated [place] coma scale motor response: Obey commands [place] coma scale total score: 15 SENSORY EXAM: Yes extremities (intact) Psych: COMMON NORMALS: speech normal SPEECH: Yes normal speech Skin: COMMON NORMALS: no rashes or lesions noted GENERAL SKIN EXAM: no rashes or lesions noted Course Vital Signs: Vital signs: Vital Signs Temperature 97.7 F 04/21/24 21:36 Pulse Rate 68 04/21/24 23:55 Respiratory Rate 16 04/21/24 23:15 Blood Pressure 122/78 04/21/24 23:55 Pulse Oximetry 99 04/21/24 23:55 Oxygen Delivery Me thod Room Air 04/21/24 23:15 MDM - General Adult Medical Decision Making 23-year-old male gentleman here with palpitations. He has been on metoprolol ER succinate 25 mg daily. He said sowed's of tachycardia in the evening. Has been taking his medication in the morning. Will switch him to twice daily metoprolol to tartrate, at 25 mg to hopefully help prevent this. His EKG is no different than prior. His heart rate has been in the 70s since he has been here. He has no symptoms currently. He has had multiple normal workups for the same complaint, and further workup in the emergency department this evening is not felt necessary clinically No radiology studies performed this visit Discharge Plan Discharge Patient Disposition: Home Clinical Impression: Anxiety, Heart palpitations Condition: Stable Prescriptions: New metoprolol tartrate 25 mg tablet 25 mg PO BID Qty: 60 0RF Discontinued metoprolol succinate 25 mg Tablet Extended Release 24 Hr 25 mg PO DAILY 30 Days Qty: 30 0RF No Action hydroxyzine pamoate 25 mg capsule 25 mg PO TID aspirin 81 mg capsule 81 mg PO DAILY 30 Days Qty: 30 0RF Discharge Orders: Discharge ED (Routine); Ordered 04/21/24 Ordered By: Milton Barber Patient Instructions: Tachycardia (ED), Opioid Safety, Pain Management Activity Restrictions/Additional Instructions: Discontinue the current metoprolol you are taking. Take the new metoprolol prescribed twice daily as directed. Return for any problems. 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
--- NOTE | 2024-04-21 22:46 | ECG_ITS ---
[employer] Test Date: 2024-04-21 Pat Name: Reji Mancera Department: Room: Gender: Male Health Plan Manager: : 2000 Requested By: Milton Dowling Order Number: [id number] Jason MD: Jim Paez M.D. Measurements Intervals [place] Rate: 77 P: 54 RI: 156 QRS: 61 QRSD: 102 T: 31 QT: 385 QTc: 437 Interpretive Statements SINUS RHYTHM INCOMPLETE RIGHT BUNDLE BRANCH BLOCK [90+ ms QRS DURATION, TERMINAL R IN V1/V2, 40+ ms S IN I/aVL/V4/V5/V6] NONSPECIFIC ST & T-WAVE ABNORMALITY Compared to ECG 04/20/2024 21:36:24 No significant changes Electronically Signed On 04-25-2024 21:37:26 CREAM MAKER by Jim Paez M.D. [id number]
[2024-04-21 23:15] VITALS: BP 128/81; PULSE 69; RESP 16; O2SAT 95
[2024-04-21] MEDS: metoprolol tartrate 25 mg Tablet PO (23:26)
[2024-04-21 23:55] VITALS: BP 122/78; PULSE 68; O2SAT 99
== END 2024-04-21 23:56 | disposition home or self-care (01) ==
PROVIDERS: Emergency Provider Emergency Medicine
DX: F41.9 Anxiety disorder, unspecified (principal); R00.2 Palpitations; Z79.82 Long term (current) use of aspirin; F17.200 Nicotine dependence, unspecified, uncomplicated
CPT/HCPCS: 93005; 99283

== ENCOUNTER 2024-04-28 19:12 | Emergency (ER) | payer SELFPAY ==
[2024-04-28 19:19] VITALS: BP 114/77; PULSE 69; RESP 14; TEMP 36.7; O2SAT 99
--- NOTE | 2024-04-28 19:25 | ECG_ITS ---
[employer] Test Date: 2024-04-28 Pat Name: Reji Mancera Department: Room: Gender: Male Personal Care Home Administrator: : 2000 Requested By: Han Balbuena Order Number: [id number] Gomez MD: Jim Paez M.D. Measurements Intervals [place] Rate: 68 P: 44 MD: 167 QRS: 89 QRSD: 103 T: 39 QT: 394 QTc: 422 Interpretive Statements SINUS RHYTHM INCOMPLETE RIGHT BUNDLE BRANCH BLOCK [90+ ms QRS DURATION, TERMINAL R IN V1/V2, 40+ ms S IN I/aVL/V4/V5/V6] ST ELEVATION CONSISTENT WITH INJURY, PERICARDITIS, OR EARLY REPOLARIZATION [ST ELEVATION W/O NORMALLY INFLECTED T-WAVE] NONSPECIFIC ST & T-WAVE ABNORMALITY Compared to ECG 04/21/2024 22:46:02 ST (T wave) deviation now present Early repolarization now present T-wave abnormality still present Electronically Signed On 04-28-2024 20:25:42 THERAPEUTIC ACTIVITIES SERVICES WORKER by Jim Paez M.D. [id number]
[2024-04-28 20:01] VITALS: BP 112/80; PULSE 68; RESP 16; O2SAT 98
[2024-04-28 20:04] VITALS: BP 112/80; PULSE 72; O2SAT 99
--- NOTE | 2024-04-28 20:19 | W.ED.ARRPALP ---
HPI - Arrhythmia/Palpitations General: Chief Complaint: Arrhythmia/Palpitations Stated Complaint: sarai heart rate Time Seen by Provider: 04/28/24 19:27 History of Present Illness: This patient is a 23-year-old white male who presents to the emergency department stating that he is having adverse reaction to metoprolol. He was recently placed on this for tachycardia. He is currently undergoing a workup by cardiology for the tachycardia. He is scheduled for monitor placement likely tomorrow. He is on metoprolol 25 mg twice daily. States it is causing an icy hot sensation in his chest. Related Data Home Medications Medication Instructions Recorded Confirmed hydroxyzine pamoate 25 mg capsule 25 mg PO TID 04/18/24 04/18/24 Previous Rx's Medication Instructions Recorded aspirin 81 mg capsule 81 mg PO DAILY 30 days #30 caps 04/19/24 metoprolol tartrate 25 mg tablet 25 mg PO BID #60 tabs 04/21/24 Allergies Allergy/AdvReac Type Severity Reaction Status Date / Time naproxen Allergy ADR/ALGY-Pa Verified 04/28/24 19:24 lpitations Review of Systems General: Reports: 10 or more systems reviewed and unremarkable except in HPI and below PFSH ED PFSH: Medical History Tachycardia Surgical History No pertinent past surgical history Family History Other No pertinent family history Social History Smoking and tobacco/nicotine status: current every day tobacco/nicotine user e-cigarettes E-Cigarette Details: with nicotine and smokeless tobacco Alcohol intake: never Substance/Drug Use: never Physical Exam Const: COMMON NORMALS: no acute distress, patient oriented x3 and no limitations GENERAL APPEARANCE: cooperative and comfortable HENMT: COMMON NORMALS: normocephalic, atraumatic, Normal nasal mucous membranes and turbinates present, moist oral mucous membranes and oropharynx normal HEAD & SCALP: normal to inspection, normocephalic and atraumatic FACE & SINUS: normal facial exam NOSE: Normal nasal mucous membranes and turbinates present Eye: COMMON NORMALS: Equal, round and reactive pupils present, EOMs intact bilaterally and conjunctivae normal GENERAL EYE: appearance normal, both eyes and all related structures CONJUNCTIVA: Yes conjunctivae normal PUPIL: Yes Equal, round and reactive pupils present Neck/C-Spine: COMMON NORMALS: supple and no JVD Chest: COMMONS NORMALS: normal inspection of the chest Resp: COMMON NORMALS: normal respiratory effort and clear to auscultation bilaterally AUSCULTATION: clear to auscultation bilaterally Cardio: COMMON NORMALS: no JVD, regular rate, regular rhythm, No gallops present (Cardio), No murmurs present (Cardio) and No rub (Cardio) RATE: regular rate RHYTHM: regular rhythm GI: COMMON NORMALS: Normal to inspection, nondistended, normoactive bowel sounds present, Soft to palpation and non-tender AUSCULTATION: Yes normoactive bowel sounds PALPATION: Yes Soft to palpation : COMMON NORMALS: Yes no CVA tenderness BLADDER/KIDNEY EXAM: Yes no CVA tenderness Back/Pelvis: COMMON NORMALS: no CVA tenderness and thoracic and lumbar spine normal to inspection Extremity: COMMON NORMALS: normal to inspection Neuro: COMMON NORMALS: patient oriented x3 and CN's II-XII intact bilaterally Psych: COMMON NORMALS: mental status grossly normal, Normal thought process present and cooperative THOUGHT PROCESS: Normal thought process present Skin: COMMON NORMALS: no rashes or lesions noted, turgor normal and no jaundice GENERAL SKIN EXAM: no rashes or lesions noted and turgor normal Course Vital Signs: Vital signs: Vital Signs Temperature 98.0 F 04/28/24 19:19 Pulse Rate 72 04/28/24 20:04 Respiratory Rate 16 04/28/24 20:01 Blood Pressure 112/80 04/28/24 20:04 Pulse Oximetry 99 04/28/24 20:04 Oxygen Delivery Me thod Room Air 04/28/24 19:19 MDM - Arrhythmia/Palpitations Medical Decision Making I recommended patient continue the metoprolol. Recommended he contact his residential living assistant tomorrow get their recommendation on whether he should continue taking it. He was discharged in stable condition. No radiology studies performed this visit Discharge Plan Discharge Patient Disposition: Home Clinical Impression: Supraventricular tachycardia Medication adverse effect Qualifiers: Encounter type: initial encounter Qualified Code(s): T50.905A - Adverse effect of unspecified drugs, medicaments and biological substances, initial encounter Condition: Stable Prescriptions: No Action hydroxyzine pamoate 25 mg capsule 25 mg PO TID aspirin 81 mg capsule 81 mg PO DAILY 30 Days Qty: 30 0RF metoprolol tartrate 25 mg tablet 25 mg PO BID Qty: 60 0RF Discharge Orders: Discharge ED (Routine); Ordered 04/28/24 Ordered By: Han Balbuena Patient Instructions: Supraventricular Tachycardia Activity Restrictions/Additional Instructions: Contact your residential living assistant tomorrow regarding the metoprolol. 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
== END 2024-04-28 20:06 | disposition home or self-care (01) ==
PROVIDERS: Emergency Provider Emergency Medicine
DX: I47.10 Supraventricular tachycardia, unspecified (principal); T50.905A Adverse effect of unspecified drugs, medicaments and biological substances, initial encounter; Z79.82 Long term (current) use of aspirin; X58.XXXA Exposure to other specified factors, initial encounter
CPT/HCPCS: 93005; 99282

== ENCOUNTER 2025-02-24 21:46 | Emergency (ER) | payer SELFPAY ==
[2025-02-24 21:50] VITALS: BP 113/75; PULSE 70; RESP 18; TEMP 36.9; O2SAT 97; BMI 26.2
--- NOTE | 2025-02-24 21:58 | ECG_ITS ---
[facility] Test Date: 2025-02-24 Pat Name: Reji Mancera Department: Room: Gender: Male Food Cart Attendant: : 2000 Requested By: Christiana Vyas Order Number: [id number] Gomez MD: Jim Paez M.D. Measurements Intervals [place] Rate: 69 P: 38 WI: 173 QRS: 20 QRSD: 105 T: 23 QT: 400 QTc: 429 Interpretive Statements SINUS RHYTHM POSSIBLE RIGHT VENTRICULAR CONDUCTION DELAY [RSR (QR) IN V1/V2] NONSPECIFIC ST ELEVATION [0.05+ mV ST ELEVATION] INTERPRETATION BASED ON A DEFAULT AGE OF 40 YEARS Compared to ECG 04/28/2024 19:25:32 Incomplete right bundle-branch block no longer present Early repolarization no longer present T-wave abnormality no longer present ST (T wave) deviation still present Electronically Signed On 02-25-2025 17:55:58 CDT by Jim Paez M.D. [email or web address] [id number]
--- NOTE | 2025-02-24 23:24 | XRR_ITS ---
PROCEDURE INFORMATION: Exam: XR Chest Exam date and time: 02/25/2025 12:35 AM Age: 24 years old Clinical indication: Pain; Chest pressure; Additional info: Chest pain TECHNIQUE: Imaging protocol: Radiologic exam of the chest. Views: 1 view. COMPARISON: CR XR chest 1V portable [id number] 04/20/2024 10:07 PM FINDINGS: Lungs: Unremarkable. No consolidation. Pleural spaces: Unremarkable. No pleural effusion. No pneumothorax. Heart/Mediastinum: Unremarkable. No cardiomegaly. Bones/joints: Unremarkable. XR/XR chest 1V portable [id number] IMPRESSION: No acute findings.
--- NOTE | 2025-02-25 00:27 | W.ED.CHESTPA ---
HPI - Chest Pain General: Chief Complaint: Chest Pain Stated Complaint: cp Time Seen by Provider: 02/24/25 22:51 History of Present Illness: 24-year-old male with a history of SVT resents emergency room with chest pain and tachycardia that has now resolved. He has had a couple of episodes that started a couple of hours ago. No cough. No fever. No abdominal pain. No nausea or vomiting. Related Data Previous Rx's ?Medication ?Instructions ?Recorded metoprolol tartrate 25 mg tablet 25 mg PO BID #180 tabs 09/06/24 Allergies Allergy/AdvReac Type Severity Reaction Status Date / Time naproxen Allergy ADR/ALGY-Pa Verified 02/24/25 21:59 lpitations Review of Systems Narrative: Constitutional symptoms: Negative except as documented in HPI. Skin symptoms: Negative except as documented in HPI. Eye symptoms: Negative except as documented in HPI. ENMT symptoms: Negative except as documented in HPI. Respiratory symptoms: Negative except as documented in HPI. Cardiovascular symptoms: Negative except as documented in HPI. Gastrointestinal symptoms: Negative except as documented in HPI. Genitourinary symptoms: Negative except as documented in HPI. Musculoskeletal symptoms: Negative except as documented in HPI. Neurologic symptoms: Negative except as documented in HPI. Psychiatric symptoms: Negative except as documented in HPI. Endocrine symptoms: Negative except as documented in HPI. [facility] ED PFSH: Medical History (Updated 02/25/25 @ 01:29 by Christiana Giron MD) Tachycardia Surgical History No pertinent past surgical history Family History Other No pertinent family history Social History Smoking and tobacco/nicotine status: current every day tobacco/nicotine user (vape) e-cigarettes E-Cigarette Details: with nicotine and smokeless tobacco Alcohol intake: never Substance/Drug Use: never Physical Exam Narrative: EXAM NARRATIVE: General: Alert, no acute distress. Skin: Warm, dry. Head: Normocephalic, atraumatic. Neck: Supple, trachea midline. Eye: Extraocular movements are intact. Ears, nose, mouth and throat: mucosa moist. Cardiovascular: Regular, Normal peripheral perfusion. Respiratory: Lungs are clear to auscultation, respirations are non-labored, breath sounds are equal, Symmetrical chest wall expansion. Gastrointestinal: Soft, Nontender, Non distended Musculoskeletal: Normal ROM, no deformity. Neurological: Alert and oriented, No focal neurological deficit observed. Psychiatric: Cooperative, appropriate mood & affect. Course Vital Signs: Vital signs: Vital Signs Temperature 98.4 F 02/24/25 21:50 Pulse Rate 60 02/25/25 00:47 Respiratory Rate 18 02/24/25 21:50 Blood Pressure 119/78 02/25/25 00:47 Pulse Oximetry 96 02/25/25 00:47 Oxygen Delivery Me thod Room Air 02/25/25 00:47 MDM - Chest Pain Medical Decision Making Differential diagnosis for patient with chest pain includes but is not limited to and based on the above HPI, review of systems and physical exam: Pneumonia. unstable angina. angina. Acute coronary syndrome / [place]. Pulmonary embolism. Costochondritis / musculoskeletal. Pleurisy. Pericarditis. Esophageal spasm. Pancreatis. Cholecystitis. Orders placed to evaluate differential diagnosis based on the above differential, HPI and physical exam EKG: Time 2150. Rate 69. Normal sinus rhythm, nonspecific ST changes, no ectopy, normal [place] & QRS intervals, This was reviewed and interpreted by myself the ER physician at 2155. Chest x-ray: No acute process. No infiltrate. No pneumothorax. This was reviewed and interpreted by myself the emergency room physician. I also reviewed the radiology report. Lab Review: Laboratory results were reviewed and interpreted by myself the emergency room physician. Lab work is unremarkable. No leukocytosis. No anemia. No renal failure. Troponin is negative. I reviewed the patient's medical record. Reexamination: Patient remained stable. No increased work of breathing. No altered mental status. No focal motor deficits. Assessment and plan: Likely SVT that has resolved Chest pain ? No abnormalities found on workup here today and no dysrhythmias on cardiac monitoring - Discharged home - Discussed plan with patient. Answered any questions. - Evaluation and treatment of this problem were appropriate in the emergency setting. Lab Data 02/25/25 00:40 02/25/25 00:40 Radiology Impressions Chest X-Ray 02/24/25 23:24 IMPRESSION: No acute findings. Laboratory Results WBC 9.54 10^3/uL (3.29-11.43) 02/25/25 00:40 RBC 5.59 10^6/uL (3.85-5.65) 02/25/25 00:40 Hgb 16.30 g/dL (11.27-16.99) 02/25/25 00:40 Hct 46.5 % (37-53) 02/25/25 00:40 MCV 83.2 fl (82-101) 02/25/25 00:40 MCH 29.2 pg (27-33) 02/25/25 00:40 MCHC 35.1 g/dL (30-55) 02/25/25 00:40 RDW 12.0 % (12.1-15.1) L 02/25/25 00:40 Plt Count 235 10^3/cmm (157-399) 02/25/25 00:40 MPV 11.0 fL (7.4-10.4) H 02/25/25 00:40 Neut % (Auto) 59.6 % 02/25/25 00:40 Lymph % (Auto) 30.2 % 02/25/25 00:40 [place] % (Auto) 8.2 % 02/25/25 00:40 Eos % (Auto) 0.9 % 02/25/25 00:40 Baso % (Auto) 0.8 % 02/25/25 00:40 Neut # (Auto) 5.68 10^3/uL (1.8-7.7) 02/25/25 00:40 Lymph # (Auto) 2.9 10^3/uL (0.8-4.8) 02/25/25 00:40 [place] # (Auto) 0.8 10^3/uL (0.2-0.9) 02/25/25 00:40 Eos # (Auto) 0.1 10^3/uL (0.0-0.8) 02/25/25 00:40 Baso # (Auto) 0.1 10^3/uL (0.0-0.1) 02/25/25 00:40 Nucleated RBC % (auto) 0 % 02/25/25 00:40 Nucleated RBCs # 0.0 /100WBC 02/25/25 00:40 Sodium 139 mmol/L (136-145) 02/25/25 00:40 Potassium 4.1 mmol/L (3.5-5.1) 02/25/25 00:40 Chloride 100 mmol/L (98-107) 02/25/25 00:40 Carbon Dioxide 27 mmol/L (22-29) 02/25/25 00:40 Anion Gap 16.1 (5-19) 02/25/25 00:40 BUN 12 mg/dL (6-20) 02/25/25 00:40 Creatinine 0.8 mg/dL (0.7-1.2) 02/25/25 00:40 GFR Calculation 116.9 mL/min (90-130) 02/25/25 00:40 Glucose 100 mg/dL (65-115) 02/25/25 00:40 Calculated Osmolality 288 mOsm/kg (285-295) 02/25/25 00:40 Calcium 9.5 mg/dL (8.5-10.5) 02/25/25 00:40 Total Bilirubin 0.4 mg/dL (0.15-1.2) 02/25/25 00:40 AST 27 U/L (0-40) 02/25/25 00:40 ALT 48 U/L (0-41) H 02/25/25 00:40 Alkaline Phosphatase 100 U/L (40-130) 02/25/25 00:40 Troponin T Baseline < 6 ng/L (0-15) 02/25/25 00:40 Total Protein 7.5 g/dL (6.6-8.7) 02/25/25 00:40 Albumin 4.8 g/dL (3.5-5.2) 02/25/25 00:40 Globulin 2.7 g/dL (1.3-4.6) 02/25/25 00:40 All radiology interpretation(s) finalized by discharge Discharge Plan Discharge Patient Disposition: Home Clinical Impression: Palpitations, Chest pain Condition: Stable Prescriptions: No Action metoprolol tartrate 25 mg tablet 25 mg PO BID Qty: 180 3RF Discharge Orders: Discharge ED (Routine); Ordered 02/25/25 Ordered By: Christiana Giron Discharge Diet: Usual diet Discharge Activity: Increase activity as tolerated Patient Instructions: Supraventricular Tachycardia (ED), Opioid Safety, Pain Management, Patient Portal & [facility] Instructions Activity Restrictions/Additional Instructions: Thank you for choosing [email or web address] for your healthcare needs today. You have been screened and evaluated and felt safe for discharge. Health conditions do change or evolve sometimes and as such it is important that you follow up with your Primary Doctor to be re checked, 3-5 days is a general good time frame for follow up. 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
[2025-02-25 00:47] VITALS: BP 119/78; PULSE 60; O2SAT 96
[2025-02-25 01:00] VITALS: BP 107/73; PULSE 58; RESP 17; O2SAT 96
[2025-02-25 01:05] LABS: Troponin(5th) Baseline < 6 ng/L (0-15)
[2025-02-25 01:07] LABS: Hematocrit 46.5 % (37-53); Hemoglobin 16.30 g/dL (11.27-16.99); Mean Corpuscular HGB Conc 35.1 g/dL (30-55); Mean Corpuscular Hemoglobin 29.2 pg (27-33); Mean Corpuscular Volume 83.2 fl (82-101); Nucleated Red Blood Cells % 0 %; Platelet Count 235 10^3/cmm (157-399); Red Blood Count 5.59 10^6/uL (3.85-5.65); White Blood Count 9.54 10^3/uL (3.29-11.43)
[2025-02-25 01:08] LABS: Alanine Aminotransferase 48 U/L (0-41); Albumin Level 4.8 g/dL (3.5-5.2); Alkaline Phosphatase 100 U/L (40-130); Anion Gap 16.1 (5-19); Aspartate Amino Transferase 27 U/L (0-40); Blood Urea Nitrogen 12 mg/dL (6-20); Calcium 9.5 mg/dL (8.5-10.5); Carbon Dioxide 27 mmol/L (22-29); Chloride 100 mmol/L (98-107); Creatinine Clr Calc Pharmacy 156.9281; Globulin 2.7 g/dL (1.3-4.6); Glucose 100 mg/dL (65-115); Osmolality Calculated 288 mOsm/kg (285-295); Potassium 4.1 mmol/L (3.5-5.1); Sodium 139 mmol/L (136-145); Total Protein 7.5 g/dL (6.6-8.7)
[2025-02-25 01:30] VITALS: BP 110/62; PULSE 51; RESP 18; O2SAT 96
== END 2025-02-25 01:43 | disposition home or self-care (01) ==
PROVIDERS: Emergency Provider Emergency Medicine
DX: R00.2 Palpitations (principal); R07.9 Chest pain, unspecified; F17.290 Nicotine dependence, other tobacco product, uncomplicated
CPT/HCPCS: 71045; 80053; 84484; 85025; 93005; 99285